=== PATIENT | male | born 1970 | race African-American/Black ===

== ENCOUNTER 2016-06-09 19:49 | Inpatient (IN) | payer MEDICARE, MEDICAID ==
[2016-06-09] MEDS ORDERED: NORMAL SALINE 1000 ML 1,000 ML IV PRN (20:07)
--- NOTE | 2016-06-09 20:09 | ER Document Report ---
ED Medical Screen (RME) - General Stated Complaint: RIGHT FOOT PAIN Notes: Right foot swelling and draining I greeted and performed a rapid initial assessment of this patient. Comprehensive ED assessment and evaluation of the patient, analysis of test results and completion of the medical decision making process will be conducted by additional ED providers. TRAVEL OUTSIDE OF THE [place] IN LAST 30 DAYS: No - Related Data Allergies/Adverse Reactions: No Known Allergies Allergy (Verified 03/25/16 12:31) Past Medical History - Past Medical History Cardiac Medical History: Reports: Hx Hypercholesterolemia, Hx Hypertension Pulmonary Medical History: Reports: Hx Asthma Endocrine Medical History: Reports: Hx Diabetes Mellitus Type 1, Hx Diabetes Mellitus Type 2 GI Medical History: Reports: Hx Gastroesophageal Reflux Disease Psychiatric Medical History: Denies: Hx Depression Infectious Medical History: Reports: Hx HIV Past Surgical History: Reports: Hx Orthopedic Surgery - large toe amputation - Immunizations Hx Diphtheria, Pertussis, Tetanus Vaccination: Yes
--- NOTE | 2016-06-09 21:01 | ER Document Report ---
ED Extremity Problem, Lower - General Chief Complaint: Foot Pain Stated Complaint: RIGHT FOOT PAIN Notes: The patient is a 45-year-old male, past medical history diabetes, prior toe amputations, chronic foot ulcers, neuropathy, presents with a small amount of bleeding and discharge out of a right 3rd toe wound. The bleeding has now stopped. He does not remember if he injured it. He follows with the outpatient wound care center for other foot ulcers, but this ulcer is new. Denies discharge, fevers, redness or streaking, difficulty walking or increased numbness. TRAVEL OUTSIDE OF THE [place] IN LAST 30 DAYS: No - Related Data Allergies/Adverse Reactions: No Known Allergies Allergy (Verified 03/25/16 12:31) Past Medical History - General Information source: Relative - Son - Social History Smoking Status: Unknown if Ever Smoked Family History: Reviewed & Not Pertinent Patient has suicidal ideation: No Patient has homicidal ideation: No - Past Medical History Cardiac Medical History: Reports: Hx Hypercholesterolemia, Hx Hypertension Pulmonary Medical History: Reports: Hx Asthma Endocrine Medical History: Reports: Hx Diabetes Mellitus Type 1, Hx Diabetes Mellitus Type 2 Renal/ Medical History: Denies: Hx Peritoneal Dialysis GI Medical History: Reports: Hx Gastroesophageal Reflux Disease Psychiatric Medical History: Denies: Hx Depression Infectious Medical History: Reports: Hx HIV Past Surgical History: Reports: Hx Orthopedic Surgery - large toe amputation - Immunizations Hx Diphtheria, Pertussis, Tetanus Vaccination: Yes Review of Systems - Review of Systems Notes: REVIEW OF SYSTEMS: CONSTITUTIONAL: -fevers, -chills EENT: -eye pain, -difficulty swallowing, -nasal congestion CARDIOVASCULAR:-chest pain, -syncope. RESPIRATORY: -cough, -SOB GASTROINTESTINAL: -abdominal pain, -nausea, -vomiting, -diarrhea GENITOURINARY: -dysuria, -hematuria MUSCULOSKELETAL: -right foot pain, -back pain, -neck pain SKIN: +right foot ulcer HEMATOLOGIC: -easy bruising or bleeding. LYMPHATIC: -swollen, enlarged glands. NEUROLOGICAL: -altered mental status or loss of consciousness, -headache, - neurologic symptoms PSYCHIATRIC: -anxiety, -depression. ALL OTHER SYSTEMS REVIEWED AND NEGATIVE. Physical Exam - Vital signs Vitals: Temp Pulse Resp BP Pulse Ox 99.9 F 100 16 141/78 H 100 06/09/16 20:02 06/09/16 20:02 06/09/16 20:02 06/09/16 20:02 06/09/16 20:02 Temp 99.9, HR 100, BP 141/78, Resp 16, Pulse Ox 100% - Notes Notes: PHYSICAL EXAMINATION: GENERAL: Well-appearing, well-nourished and in no acute distress. HEAD: Atraumatic, normocephalic. EYES: Pupils equal round and reactive to light, extraocular movements intact, sclera anicteric, conjunctiva are normal. ENT: nares patent, oropharynx clear without exudates. Moist mucous membranes. NECK: Normal range of motion, supple without lymphadenopathy LUNGS: Breath sounds clear to auscultation bilaterally and equal. No wheezes rales or rhonchi. HEART: Regular rate and rhythm without murmurs ABDOMEN: Soft, nontender, normoactive bowel sounds. No guarding, no rebound. No masses appreciated. EXTREMITIES: Right foot with amputation of 1st and 5th toes. Red ulcer over right 3rd toe, no drainage. NEUROLOGICAL: Cranial nerves grossly intact. Normal speech, normal gait. Normal sensory, motor, and reflex exams. PSYCH: Normal mood, normal affect. SKIN: Erythematous ulcer over the dorsal surface of third right toe. No bleeding and no drainage. Course - Re-evaluation Re-evalutation: Patient's wound is not actively bleeding. Foot x-ray shows evidence of osteomyelitis. Will begin Vancomycin and admit for IV Abx and Surgery consult. Spoke to Dr. Mercedes and recommends Medicine Admission and Surgery consult. 06/09/16 23:[address] Springer and he has accepted patient as Inpatient for IV antibiotics and further evaluation of his osteomyelitis. Son and patient comfortable with plan. - Vital Signs Vital signs: Temp Pulse Resp BP Pulse Ox 99.7 F 96 16 133/77 H 100 06/09/16 22:08 06/09/16 22:08 06/09/16 22:08 06/09/16 22:08 06/09/16 22:08 - Laboratory Result Diagrams: 06/09/16 22:45 06/09/16 22:45 Laboratory results interpreted by me: 06/09/16 22:45 RBC 4.18 L Hgb 8.5 L Hct 28.7 L MCV 69 L MCH 20.3 L MCHC 29.6 L RDW 15.3 H - Diagnostic Test Radiology reviewed: Image reviewed, Reports reviewed Radiology results interpreted by me: Foot x-ray: concern for osteomyelitis Discharge - Discharge Clinical Impression: Foot ulcer, right Qualifiers: Non-pressure ulcer stage: limited to breakdown of skin Qualified Code(s): L97.511 - Non-pressure chronic ulcer of other part of right foot limited to breakdown of skin Osteomyelitis Qualifiers: Osteomyelitis location: foot Laterality: right Chronicity: unspecified Qualified Code(s): M86.9 - Osteomyelitis, unspecified Condition: Stable Disposition: ADMITTED INPATIENT Admitting Provider: Donal[facility] Unit Admitted: Medical Floor Referrals: VERONIKA ALMANZA MD [Primary Care Provider] - Follow up as needed
[2016-06-09] MEDS ORDERED: BACITRACIN ZINC OINTMENT 15 GM TP ONE (21:19)
[2016-06-09] MEDS ORDERED: VANCOMYCIN HCL INJ 1000 MG VIAL IV ONE (22:12)
[2016-06-09 23:11] LABS: ABSOLUTE LYMPHOCYTES (AUTO) 1.5 10^3/uL (0.5-4.7); ABSOLUTE MONOCYTES (AUTO) 0.9 10^3/uL (0.1-1.4); ABSOLUTE NEUT (AUTO) 7.3 10^3/uL (1.7-8.2); BASOPHILS % (AUTO) 0.2 % (0-2); EOSINOPHILS % (AUTO) 0.4 % (0-6); HEMATOCRIT 28.7 % (37.9-51.0); HEMOGLOBIN 8.5 g/dL (13.5-17.0); HGB HCT DIFFERENCE -3.2; LYMPHOCYTES % (AUTO) 15.6 % (13-45); MEAN CORPUSCULAR HEMOGLOBIN 20.3 pg (27.0-33.4); MEAN CORPUSCULAR HGB CONC 29.6 g/dL (32.0-36.0); MEAN CORPUSCULAR VOLUME 69 fl (80-97); MONOCYTES % (AUTO) 9.2 % (3-13); RED BLOOD COUNT 4.18 10^6/uL (4.35-5.55); RED CELL DISTRIBUTION WIDTH 15.3 % (11.5-14.0); SEGMENTED NEUTROPHILS % (AUTO) 74.6 % (42-78); WHITE BLOOD COUNT 9.7 10^3/uL (4.0-10.5)
[2016-06-09 23:28] LABS: ALANINE AMINOTRANSFERASE 15 U/L (21-72); ALBUMIN 3.1 g/dL (3.5-5.0); ALKALINE PHOSPHATASE 112 U/L (38-126); ANION GAP 12 (5-19); ASPARTATE AMINO TRANSFERASE 14 U/L (17-59); BILIRUBIN,TOTAL 0.6 mg/dL (0.2-1.3); BLOOD UREA NITROGEN 12 mg/dL (7-20); CALCIUM 8.6 mg/dL (8.4-10.2); CARBON DIOXIDE 27 mmol/L (22-30); CHLORIDE 93 mmol/L (98-107); CREATININE RESULT 1.12 mg/dL (0.52-1.25); POTASSIUM 4.4 mmol/L (3.6-5.0)
[2016-06-09] MEDS ORDERED: KETOROLAC TROMETHAMINE INJ/PF 30 MG/1 ML SDV IV ONE (23:52)
[2016-06-10 00:02] LABS: C-REACTIVE PROTEIN 185.5 mg/L (<10.0)
[2016-06-10 00:05] LABS: GLUCOSE 592 mg/dL (75-110)
[2016-06-10 00:33] LABS: ERYTHROCYTE SEDIMENTATION RATE 120 mm/hr (0-15)
[2016-06-10] MEDS ORDERED: DEXTROSE 50%-WATER SYRINGE 12.5 GM/25 ML DOSE IV PRN (01:44)
[2016-06-10] MEDS ORDERED: DEXTROSE 50%-WATER SYRINGE 25 GM/50 ML DOSE IV PRN (01:44)
[2016-06-10] MEDS ORDERED: DEXTROSE 40% GEL 15 GM TUBE PO PRN (01:44)
[2016-06-10] MEDS ORDERED: GLUCAGON,HUMAN RECOMB 1 MG INJ IM PRN (01:44)
[2016-06-10] MEDS ORDERED: DEXTROSE 40% GEL 15 GM TUBE X 2 PO PRN (01:44)
[2016-06-10] MEDS ORDERED: INSULIN LISPRO 100 UNIT/ML 3 ML VIAL SUBCUT ONE ×3 (01:45→08:00)
[2016-06-10] MEDS ORDERED: INFLUENZA ADLT QUAD (36MOS+) 2016-17 VAC 0.5 ML SYR IM PRN (05:03)
[2016-06-10] MEDS: NORMAL SALINE 1000 ML 1,000 ML IV PRN ×2 (05:11→16:48)
[2016-06-10] MEDS ORDERED: HYDROCODONE/ACETAMINOPHEN 5-325 MG TABLET PO PRN (05:50)
[2016-06-10] MEDS: VANCOMYCIN HCL 1,500 MG in DEXTROSE 5%-WATER 250 ML IV SCH ×2 (10:49→17:08)
[2016-06-10] MEDS: INSULIN LISPRO 100 UNIT/ML 3 ML VIAL SUBCUT PRN ×3 (12:53→22:13)
[2016-06-10] MEDS ORDERED: [UNRECOGNIZED DRUG - OTHER] PO SCH (18:00)
[2016-06-10] MEDS ORDERED: RITONAVIR 100 MG TABLET PO SCH (18:00)
[2016-06-10] MEDS ORDERED: BENAZEPRIL PO SCH (18:00)
[2016-06-10] MEDS ORDERED: HYDROCHLOROTHIAZIDE PO SCH (18:00)
[2016-06-10] MEDS ORDERED: (PENDING PHARMACY ID) (Pravastatin Sodium [Pravachol] 40 MG) PO SCH (18:00)
[2016-06-10] MEDS ORDERED: ASPIRIN 81 MG TABLET, CHEWABLE PO SCH (18:00)
[2016-06-10] MEDS ORDERED: (PENDING PHARMACY ID) (Atazanavir Sulfate [Reyataz 300 Mg Capsule] 300 MG) PO SCH (18:00)
[2016-06-10] MEDS ORDERED: ATENOLOL 50 MG TABLET PO ONE (19:15)
[2016-06-10 19:27] LABS: CREATINE KINASE MB 0.64 ng/mL (<4.55)
[2016-06-10] MEDS ORDERED: ASPIRIN 81 MG TABLET, ENT COATED PO ONE (19:30)
[2016-06-10] MEDS ORDERED: CLOPIDOGREL BISULFATE 75 MG TABLET PO ONE (19:30)
[2016-06-10 19:31] LABS: TROPONIN I < 0.012 ng/mL
[2016-06-10] MEDS: PIPERACILLIN SODIUM/TAZOBACTAM 3.375 GM in NORMAL SALINE 100 ML IV SCH (19:33)
[2016-06-10] MEDS ORDERED: BENAZEPRIL HCL 20 MG TABLET PO ONE (20:00)
[2016-06-10] MEDS ORDERED: ENOXAPARIN SODIUM INJ 40 MG/0.4 ML DISP.SYRIN SUBCUT ONE (20:00)
[2016-06-10 20:22] LABS: PHOSPHORUS 3.7 mg/dL (2.5-4.5)
[2016-06-10] MEDS ORDERED: DIVALPROEX SODIUM 500 MG TAB.SR.24H PO SCH (22:00)
[2016-06-10] MEDS: INSULIN GLARGINE,HUM.REC.ANLOG 1,000 UNIT/10 ML UNIT SUBCUT SCH (22:13)
[2016-06-10] MEDS: ATORVASTATIN CALCIUM 10 MG TABLET PO SCH (22:13)
[2016-06-11] MEDS: PIPERACILLIN SODIUM/TAZOBACTAM 3.375 GM in NORMAL SALINE 100 ML IV SCH ×4 (00:22→18:22)
[2016-06-11 01:33] LABS: CREATINE KINASE MB 0.41 ng/mL (<4.55)
[2016-06-11 01:37] LABS: TROPONIN I < 0.012 ng/mL
[2016-06-11] MEDS: VANCOMYCIN HCL 1,500 MG in DEXTROSE 5%-WATER 250 ML IV SCH ×2 (01:59→11:38)
[2016-06-11 02:56] LABS: URINE BARBITURATES SCREEN NEGATIVE; URINE METHADONE SCREEN NEGATIVE; URINE PHENCYCLIDINE SCREEN NEGATIVE
[2016-06-11] MEDS ORDERED: CLOPIDOGREL BISULFATE 75 MG TABLET PO SCH (10:00)
[2016-06-11 10:34] LABS: HEMATOCRIT 27.1 % (37.9-51.0); HEMOGLOBIN 8.5 g/dL (13.5-17.0); HGB HCT DIFFERENCE -1.6; MEAN CORPUSCULAR HEMOGLOBIN 20.7 pg (27.0-33.4); MEAN CORPUSCULAR HGB CONC 31.3 g/dL (32.0-36.0); MEAN CORPUSCULAR VOLUME 66 fl (80-97); RED BLOOD COUNT 4.09 10^6/uL (4.35-5.55); RED CELL DISTRIBUTION WIDTH 14.7 % (11.5-14.0); WHITE BLOOD COUNT 8.2 10^3/uL (4.0-10.5)
[2016-06-11 11:00] LABS: ALANINE AMINOTRANSFERASE < 6 U/L (21-72); ALBUMIN 2.5 g/dL (3.5-5.0); ALKALINE PHOSPHATASE 82 U/L (38-126); ANION GAP 10 (5-19); ASPARTATE AMINO TRANSFERASE 15 U/L (17-59); BILIRUBIN,TOTAL 0.3 mg/dL (0.2-1.3); BLOOD UREA NITROGEN 15 mg/dL (7-20); CALCIUM 8.8 mg/dL (8.4-10.2); CARBON DIOXIDE 26 mmol/L (22-30); CHLORIDE 103 mmol/L (98-107); CREATINE KINASE 85 U/L (55-170); GLUCOSE 151 mg/dL (75-110); POTASSIUM 3.7 mmol/L (3.6-5.0); SODIUM 139.1 mmol/L (137-145); TOTAL PROTEIN 7.4 g/dL (6.3-8.2)
[2016-06-11 11:01] LABS: CREATINE KINASE MB 0.36 ng/mL (<4.55)
[2016-06-11 11:07] LABS: TROPONIN I < 0.012 ng/mL
[2016-06-11 11:35] LABS: BASOPHILS % (MANUAL) 0 % (0-2); EOSINOPHILS % (MANUAL) 1 % (0-6); LYMPHOCYTES % (MANUAL) 18 % (13-45); TOTAL CELLS COUNTED 100
[2016-06-11] MEDS: ENOXAPARIN SODIUM INJ 40 MG/0.4 ML DISP.SYRIN SUBCUT SCH (11:36)
[2016-06-11] MEDS: ASPIRIN 81 MG TABLET, ENT COATED PO SCH (11:37)
[2016-06-11 11:40] LABS: ANISOCYTOSIS SLIGHT; MICROCYTOSIS 2+; PLATELET CLUMPS PRESENT; ROULEAUX SLIGHT; TOXIC GRANULATION SLIGHT; TOXIC VACUOLATION PRESENT
[2016-06-11] MEDS: ATENOLOL 50 MG TABLET PO SCH (12:12)
[2016-06-11] MEDS: BENAZEPRIL HCL 20 MG TABLET PO SCH (12:13)
[2016-06-11] MEDS: HYDROCHLOROTHIAZIDE 12.5 MG CAPSULE PO SCH (12:15)
[2016-06-11] MEDS: NORMAL SALINE 1000 ML 1,000 ML IV PRN (19:03)
--- NOTE | 2016-06-11 19:34 | PDOC H&P ---
History of Present Illness Admission Date/PCP: 06/10/16 05:38 VERONIKA ALMANZA, History of Present Illness: CAMILA MORENO is a 45 year old male with history of diabetes mellitus, HIV infection, CVA, extremely noncompliant with his care, he can emergency room because of right foot pain, he was evaluated. X-ray was done that suggest osteomyelitis of the right foot. He follows with outpatient wound care center for the management of the foot ulcer Past Medical History Cardiac Medical History: Reports: Hyperlipidema, Hypertension Pulmonary Medical History: Reports: Asthma Neurological Medical History: Reports: Ischemic CVA Endocrine Medical History: Reports: Diabetes Mellitus Type 2 GI Medical History: Reports: Gastroesophageal Reflux Disease Infectious Medical History: Reports: HIV Past Surgical History Past Surgical History: Reports: Orthopedic Surgery - large toe amputation Social History Information Source: Patient Smoking Status: Never Smoker Frequency of Alcohol Use: None Hx Recreational Drug Use: No Drugs: None Hx Prescription Drug Abuse: No - Advance Directive Resuscitation Status: Full Code Family History Family History: Reviewed & Not Pertinent Parental Family History Reviewed: Yes Children Family History Reviewed: Yes Sibling(s) Family History Reviewed.: Yes Medication/Allergy Home Medications: Aspirin [Aspirin EC] 81 mg PO DAILY 06/10/16 Atazanavir Sulfate [Reyataz] 300 mg PO QHS 06/10/16 Atenolol [Tenormin 50 mg Tablet] 50 mg PO DAILY 06/10/16 Benazepril/Hydrochlorothiazide [Lotensin Hct 20-12.5 mg Tablet] 1 tab PO DAILY 06/10/16 Clopidogrel Bisulfate [Plavix 75 mg Tablet] 75 mg PO DAILY 06/10/16 Emtricitabine/Tenofov Alafenam [Descovy 200-25 mg Tablet] 1 tab PO QHS 06/10/16 Famotidine [Pepcid 20 mg Tablet] 20 mg PO DAILY 06/10/16 Insulin Glargine,Hum.rec.anlog [Lantus Insulin Inj 300 Unit/3 ml Pen] 70 unit SUBCUT QHS 06/10/16 Isosorbide Mononitrate [Imdur 30 mg Tablet.er] 30 mg PO DAILY 06/10/16 Pravastatin Sodium [Pravachol] 40 mg PO QHS 06/10/16 Ritonavir [Norvir 100 mg Tablet] 100 mg PO QHS 06/10/16 Sertraline HCl [Zoloft 50 mg Tablet] 50 mg PO QHS 06/10/16 Allergies/Adverse Reactions: No Known Allergies Allergy (Verified 03/25/16 12:31) Review of Systems Constitutional: ABSENT: chills, fever(s), headache(s), weight gain, weight loss Eyes: ABSENT: visual disturbances Ears: ABSENT: hearing changes Cardiovascular: ABSENT: chest pain, dyspnea on exertion, edema, orthropnea, palpitations Respiratory: ABSENT: cough, hemoptysis Gastrointestinal: ABSENT: abdominal pain, constipation, diarrhea, hematemesis, hematochezia, nausea, vomiting Genitourinary: ABSENT: dysuria, hematuria Musculoskeletal: ABSENT: joint swelling Integumentary: ABSENT: rash, wounds Neurological: ABSENT: abnormal gait, abnormal speech, confusion, dizziness, focal weakness, syncope Psychiatric: ABSENT: anxiety, depression, homidical ideation, suicidal ideation Endocrine: ABSENT: cold intolerance, heat intolerance, menstrual abnormalities, polydipsia, polyuria Hematologic/Lymphatic: ABSENT: easy bleeding, easy bruising, lymphadenopathy Physical Exam Vital Signs: Temp Pulse Resp BP Pulse Ox 99.0 F 64 16 99/59 L 100 06/11/16 16:47 06/11/16 16:47 06/11/16 16:47 06/11/16 16:47 06/11/16 16:47 Intake & Output 06/10/16 06/11/16 06/12/16 06:59 06:59 06:59 Intake Total 1550 2113 1626 Balance 1550 2113 1626 Weight 126.8 kg General appearance: PRESENT: no acute distress Head exam: PRESENT: atraumatic, normocephalic Eye exam: PRESENT: PERRLA Neck exam: PRESENT: full ROM Respiratory exam: PRESENT: clear to auscultation adore Vascular exam: PRESENT: normal capillary refill GI/Abdominal exam: PRESENT: soft Rectal exam: PRESENT: deferred Neurological exam: PRESENT: alert Skin exam: PRESENT: other - There is erythematous ulcer on the dorsal surface of the right third toe with drainage suggesting infection of the foot Results Laboratory Results: 06/11/16 10:15 06/11/16 10:15 06/10/16 06/10/16 06/11/16 18:45 18:45 10:15 WBC 8.2 RBC 4.09 L Hgb 8.5 L Hct 27.1 L MCV 66 L MCH 20.7 L MCHC 31.3 L RDW 14.7 H Plt Count 268 Seg Neutrophils % Not Reportable Lymphocytes % Not Reportable Monocytes % Not Reportable Eosinophils % Not Reportable Basophils % Not Reportable Absolute Neutrophils Not Reportable Absolute Lymphocytes Not Reportable Absolute Monocytes Not Reportable Absolute Eosinophils Not Reportable Absolute Basophils Not Reportable Sodium Potassium Chloride Carbon Dioxide Anion Gap BUN Creatinine Est GFR ( Amer) Est GFR (Non-Af Amer) Glucose Calcium Phosphorus 3.7 Magnesium 2.0 Total Bilirubin AST ALT Alkaline Phosphatase Total Protein Albumin TSH 0.37 L 06/11/16 10:15 WBC RBC Hgb Hct MCV MCH MCHC RDW Plt Count Seg Neutrophils % Lymphocytes % Monocytes % Eosinophils % Basophils % Absolute Neutrophils Absolute Lymphocytes Absolute Monocytes Absolute Eosinophils Absolute Basophils Sodium 139.1 Potassium 3.7 Chloride 103 Carbon Dioxide 26 Anion Gap 10 BUN 15 Creatinine 1.50 H Est GFR ( Amer) > 60 Est GFR (Non-Af Amer) 50 L Glucose 151 H Calcium 8.8 Phosphorus Magnesium Total Bilirubin 0.3 AST 15 L ALT < 6 L Alkaline Phosphatase 82 Total Protein 7.4 Albumin 2.5 L TSH 06/10/16 06/10/16 06/11/16 18:45 18:45 00:28 Creatine Kinase 114 88 CK-MB (CK-2) 0.64 Troponin I < 0.012 06/11/16 06/11/16 06/11/16 00:28 10:15 10:15 Creatine Kinase 85 CK-MB (CK-2) 0.41 0.36 Troponin I < 0.012 < 0.012 Impressions: Foot X-Ray 06/09/16 20:08 IMPRESSION: Focal periosteal indistinctness involving the 3rd metatarsal diaphysis in the setting of a soft tissue infection is suggestive of osteomyelitis. Cortical irregularity involving the base of the 3rd digit proximal phalanx is consistent with posttraumatic change of unknown chronicity. Assessment & Plan - Diagnosis (1) Osteomyelitis of foot, right, acute Is this a current diagnosis for this admission?: YesPlan: He be started on IV antibiotic, Zosyn and vancomycin and consultation from surgery be requested (2) CVA (cerebral vascular accident) Qualifiers: CVA mechanism: stenosis Laterality of affected vessel: unspecified Is this a current diagnosis for this admission?: Yes (3) Diabetes mellitus with foot ulcer and gangrene Is this a current diagnosis for this admission?: Yes (4) HIV (human immunodeficiency virus infection) Is this a current diagnosis for this admission?: Yes (5) HTN (hypertension) Qualifiers: Hypertension type: essential hypertension Qualified Code(s): I10 - Essential (primary) hypertension Is this a current diagnosis for this admission?: Yes (6) Non compliance w medication regimen Is this a current diagnosis for this admission?: Yes
[2016-06-11] MEDS: INSULIN GLARGINE,HUM.REC.ANLOG 1,000 UNIT/10 ML UNIT SUBCUT SCH (22:51)
--- NOTE | 2016-06-11 22:51 | PDOC CONSULTATION ---
Consultation Consult Date: 06/11/16 Consult reason:: Diabetic right foot infection History of Present Illness Admission Date/PCP: 06/10/16 05:38 VERONIKA ALMANZA, History of Present Illness: 45-year-old diabetic patient with long-standing forefoot plantar surface ulcer that has been managed at the wound care clinic has been noted with the discoloration and the purulent drainage from his middle third toe uncertain of the duration. Patient is an extremely poor historian. Uncertain whether he has had any fevers or chills. He has had the right great toe and right fifth toe amputations in the past. He has had a left fifth toe amputation in the past. Past Medical History Cardiac Medical History: Reports: Hyperlipidema, Hypertension Pulmonary Medical History: Reports: Asthma Neurological Medical History: Reports: Ischemic CVA Endocrine Medical History: Reports: Diabetes Mellitus Type 1, Diabetes Mellitus Type 2 GI Medical History: Reports: Gastroesophageal Reflux Disease Psychiatric Medical History: Denies: Depression Infectious Medical History: Reports: HIV Past Surgical History Past Surgical History: Reports: Orthopedic Surgery - large toe amputation Social History Smoking Status: Never Smoker Frequency of Alcohol Use: None Hx Recreational Drug Use: No Drugs: None Hx Prescription Drug Abuse: No - Advance Directive Resuscitation Status: Full Code Family History Family History: Reviewed & Not Pertinent Parental Family History Reviewed: No Children Family History Reviewed: No Sibling(s) Family History Reviewed.: No Medication/Allergy Home Medications: Aspirin [Aspirin EC] 81 mg PO DAILY 06/10/16 Atazanavir Sulfate [Reyataz] 300 mg PO QHS 06/10/16 Atenolol [Tenormin 50 mg Tablet] 50 mg PO DAILY 06/10/16 Benazepril/Hydrochlorothiazide [Lotensin Hct 20-12.5 mg Tablet] 1 tab PO DAILY 06/10/16 Clopidogrel Bisulfate [Plavix 75 mg Tablet] 75 mg PO DAILY 06/10/16 Emtricitabine/Tenofov Alafenam [Descovy 200-25 mg Tablet] 1 tab PO QHS 06/10/16 Famotidine [Pepcid 20 mg Tablet] 20 mg PO DAILY 06/10/16 Insulin Glargine,Hum.rec.anlog [Lantus Insulin Inj 300 Unit/3 ml Pen] 70 unit SUBCUT QHS 06/10/16 Isosorbide Mononitrate [Imdur 30 mg Tablet.er] 30 mg PO DAILY 06/10/16 Pravastatin Sodium [Pravachol] 40 mg PO QHS 06/10/16 Ritonavir [Norvir 100 mg Tablet] 100 mg PO QHS 06/10/16 Sertraline HCl [Zoloft 50 mg Tablet] 50 mg PO QHS 06/10/16 Allergies/Adverse Reactions: No Known Allergies Allergy (Verified 03/25/16 12:31) Physical Exam Vital Signs: Temp Pulse Resp BP Pulse Ox 99.0 F 64 16 99/59 L 100 06/11/16 16:47 06/11/16 16:47 06/11/16 16:47 06/11/16 16:47 06/11/16 16:47 Intake & Output 06/10/16 06/11/16 06/12/16 06:59 06:59 06:59 Intake Total 1550 2113 1626 Balance 1550 2113 1626 Weight 126.8 kg General appearance: PRESENT: no acute distress Head exam: PRESENT: atraumatic Neck exam: PRESENT: other - Supple with no abnormal masses. Respiratory exam: PRESENT: clear to auscultation adore Cardiovascular exam: PRESENT: RRR GI/Abdominal exam: PRESENT: other - Soft nondistended nontender to palpation. Extremities exam: PRESENT: other - Left foot with the healed the fifth toe amputation. Right foot with healed the right great toe and fifth toe amputations. Right leg area with diffuse the swelling with skin thickening consistent with chronic venous insufficiency. Right third toe with the blistering and partial thickness skin loss with weeping pus. Right plantar forefoot with approximately 3 x 6 cm clean base ulceration. Due to diffuse swelling unable to palpate any pedal pulses but the foot is warm. Neurological exam: PRESENT: other - Right arm and right leg weakness right arm more profound. Right leg with 4+ strength. Right arm with limited range of motion favors flexion Results Laboratory Results: 06/11/16 10:15 06/11/16 10:15 06/11/16 06/11/16 10:15 10:15 WBC 8.2 RBC 4.09 L Hgb 8.5 L Hct 27.1 L MCV 66 L MCH 20.7 L MCHC 31.3 L RDW 14.7 H Plt Count 268 Seg Neutrophils % Not Reportable Lymphocytes % Not Reportable Monocytes % Not Reportable Eosinophils % Not Reportable Basophils % Not Reportable Absolute Neutrophils Not Reportable Absolute Lymphocytes Not Reportable Absolute Monocytes Not Reportable Absolute Eosinophils Not Reportable Absolute Basophils Not Reportable Sodium 139.1 Potassium 3.7 Chloride 103 Carbon Dioxide 26 Anion Gap 10 BUN 15 Creatinine 1.50 H Est GFR ( Amer) > 60 Est GFR (Non-Af Amer) 50 L Glucose 151 H Calcium 8.8 Total Bilirubin 0.3 AST 15 L ALT < 6 L Alkaline Phosphatase 82 Total Protein 7.4 Albumin 2.5 L 06/10/16 06/10/16 06/11/16 18:45 18:45 00:28 Creatine Kinase 114 88 CK-MB (CK-2) 0.64 Troponin I < 0.012 06/11/16 06/11/16 06/11/16 00:28 10:15 10:15 Creatine Kinase 85 CK-MB (CK-2) 0.41 0.36 Troponin I < 0.012 < 0.012 Impressions: Foot X-Ray 06/09/16 20:08 IMPRESSION: Focal periosteal indistinctness involving the 3rd metatarsal diaphysis in the setting of a soft tissue infection is suggestive of osteomyelitis. Cortical irregularity involving the base of the 3rd digit proximal phalanx is consistent with posttraumatic change of unknown chronicity. Assessment & Plan - Diagnosis (1) Osteomyelitis of foot, right, acute Is this a current diagnosis for this admission?: YesPlan: X-ray evidence of the right third toe osteomyelitis extending to the metatarsal. Exam consistent with this x-ray finding. Patient would highly benefit from a third toe ray amputation. Continue antibiotics. Hold Plavix. We'll plan amputation. I have discussed with the patient the risk and benefits of the procedure including risk of stroke, risk of cardiopulmonary complications , poor wound healing, progression of the infection where it requires a right leg amputation, adjacent the structure injury, bleeding. Patient understands and agrees to proceed. Will discuss with the oncoming surgeon about timing of the procedure. Will make the patient nothing by mouth tonight for possible surgery tomorrow.
[2016-06-11] MEDS ORDERED: DEXTROSE 5%-NORMAL SALINE 1,000 ML IV PRN (23:05)
[2016-06-11] MEDS: ATORVASTATIN CALCIUM 10 MG TABLET PO SCH (23:33)
[2016-06-12] MEDS: PIPERACILLIN SODIUM/TAZOBACTAM 3.375 GM in NORMAL SALINE 100 ML IV SCH ×4 (03:15→17:43)
[2016-06-12] MEDS: VANCOMYCIN HCL 1,250 MG in DEXTROSE 5%-WATER 250 ML IV SCH ×3 (03:15→23:25)
[2016-06-12] MEDS: ENOXAPARIN SODIUM INJ 40 MG/0.4 ML DISP.SYRIN SUBCUT SCH (09:39)
[2016-06-12] MEDS: HYDROCHLOROTHIAZIDE 12.5 MG CAPSULE PO SCH (10:31)
[2016-06-12] MEDS: ASPIRIN 81 MG TABLET, ENT COATED PO SCH (10:31)
[2016-06-12] MEDS: ATENOLOL 50 MG TABLET PO SCH (10:31)
[2016-06-12] MEDS: BENAZEPRIL HCL 20 MG TABLET PO SCH (10:31)
[2016-06-12 10:38] LABS: ABSOLUTE CD 4 HELPER 661 /uL (359-1519); CD BASOPHILS 0 % (.); CD EOSINOPHILS 2 % (.); CD LYMPHS 27 % (.); CD MONOCYTES 9 % (.); CD NEUTROPHILS 62 % (.); HEMOGLOBIN 8.3 g/dL (12.6-17.7); IMMATURE GRANULOCYTES 0 % (.); LYMPHS(ABSOLUTE) 1.8 x10E3/uL (0.7-3.1); MCH 20.8 pg (26.6-33.0); MCHC 29.6 g/dL (31.5-35.7); MCV 70 fL (79-97); NEUTROPHILS(ABSOLUTE) 4.3 x10E3/uL (1.4-7.0); PLATELETS 405 x10E3/uL (150-379); RBC 3.99 x10E6/uL (4.14-5.80); RDW 14.6 % (12.3-15.4); WBC 6.9 x10E3/uL (3.4-10.8)
[2016-06-12] MEDS ORDERED: NORMAL SALINE 10 ML SDV (AFTER EACH USE) IV PRN (11:27)
--- NOTE | 2016-06-12 19:22 | PDOC PROGRESS REPORT ---
Subjective Progress Note for:: 06/11/16 Subjective:: Patient was seen by the surgeon and the plan is for debridement in the morning Physical Exam Vital Signs: Temp Pulse Resp BP Pulse Ox 99.0 F 64 16 99/59 L 100 06/11/16 16:47 06/11/16 16:47 06/11/16 16:47 06/11/16 16:47 06/11/16 16:47 Intake & Output 06/10/16 06/11/16 06/12/16 06:59 06:59 06:59 Intake Total 1550 2113 1626 Balance 1550 2113 1626 Weight 126.8 kg General appearance: PRESENT: no acute distress Eye exam: PRESENT: PERRLA Cardiovascular exam: PRESENT: +S1, +S2 Results Laboratory Results: 06/11/16 10:15 06/11/16 10:15 06/10/16 06/10/16 06/11/16 18:45 18:45 10:15 WBC 8.2 RBC 4.09 L Hgb 8.5 L Hct 27.1 L MCV 66 L MCH 20.7 L MCHC 31.3 L RDW 14.7 H Plt Count 268 Seg Neutrophils % Not Reportable Lymphocytes % Not Reportable Monocytes % Not Reportable Eosinophils % Not Reportable Basophils % Not Reportable Absolute Neutrophils Not Reportable Absolute Lymphocytes Not Reportable Absolute Monocytes Not Reportable Absolute Eosinophils Not Reportable Absolute Basophils Not Reportable Sodium Potassium Chloride Carbon Dioxide Anion Gap BUN Creatinine Est GFR ( Amer) Est GFR (Non-Af Amer) Glucose Calcium Phosphorus 3.7 Magnesium 2.0 Total Bilirubin AST ALT Alkaline Phosphatase Total Protein Albumin TSH 0.37 L 06/11/16 10:15 WBC RBC Hgb Hct MCV MCH MCHC RDW Plt Count Seg Neutrophils % Lymphocytes % Monocytes % Eosinophils % Basophils % Absolute Neutrophils Absolute Lymphocytes Absolute Monocytes Absolute Eosinophils Absolute Basophils Sodium 139.1 Potassium 3.7 Chloride 103 Carbon Dioxide 26 Anion Gap 10 BUN 15 Creatinine 1.50 H Est GFR ( Amer) > 60 Est GFR (Non-Af Amer) 50 L Glucose 151 H Calcium 8.8 Phosphorus Magnesium Total Bilirubin 0.3 AST 15 L ALT < 6 L Alkaline Phosphatase 82 Total Protein 7.4 Albumin 2.5 L TSH 06/10/16 06/10/16 06/11/16 18:45 18:45 00:28 Creatine Kinase 114 88 CK-MB (CK-2) 0.64 Troponin I < 0.012 06/11/16 06/11/16 06/11/16 00:28 10:15 10:15 Creatine Kinase 85 CK-MB (CK-2) 0.41 0.36 Troponin I < 0.012 < 0.012 Impressions: Foot X-Ray 06/09/16 20:08 IMPRESSION: Focal periosteal indistinctness involving the 3rd metatarsal diaphysis in the setting of a soft tissue infection is suggestive of osteomyelitis. Cortical irregularity involving the base of the 3rd digit proximal phalanx is consistent with posttraumatic change of unknown chronicity. Assessment & Plan - Diagnosis (1) Osteomyelitis of foot, right, acute Is this a current diagnosis for this admission?: Yes (2) CVA (cerebral vascular accident) Qualifiers: CVA mechanism: stenosis Laterality of affected vessel: unspecified Is this a current diagnosis for this admission?: Yes (3) Diabetes mellitus with foot ulcer and gangrene Is this a current diagnosis for this admission?: Yes (4) HIV (human immunodeficiency virus infection) Is this a current diagnosis for this admission?: Yes (5) HTN (hypertension) Qualifiers: Hypertension type: essential hypertension Qualified Code(s): I10 - Essential (primary) hypertension Is this a current diagnosis for this admission?: Yes (6) Non compliance w medication regimen Is this a current diagnosis for this admission?: Yes
--- NOTE | 2016-06-12 19:24 | PDOC PROGRESS REPORT ---
Subjective Progress Note for:: 06/12/16 Subjective:: Patient was seen by the bedside, he has polymicrobial infection of the right foot Physical Exam Vital Signs: Temp Pulse Resp BP Pulse Ox 98.4 F 66 16 128/69 H 100 06/12/16 16:49 06/12/16 16:49 06/12/16 16:49 06/12/16 16:49 06/12/16 16:49 Intake & Output 06/11/16 06/12/16 06/13/16 06:59 06:59 06:59 Intake Total 3 2226 1088 Balance 3 2226 1088 Weight 126.8 kg 125.4 kg General appearance: PRESENT: no acute distress Eye exam: PRESENT: PERRLA Respiratory exam: PRESENT: clear to auscultation adore Cardiovascular exam: PRESENT: +S1, +S2 Results Laboratory Results: 06/11/16 10:15 06/11/16 10:15 06/10/16 06/10/16 06/11/16 18:45 18:45 00:28 Creatine Kinase 114 88 CK-MB (CK-2) 0.64 Troponin I < 0.012 06/11/16 06/11/16 06/11/16 00:28 10:15 10:15 Creatine Kinase 85 CK-MB (CK-2) 0.41 0.36 Troponin I < 0.012 < 0.012 Impressions: Foot X-Ray 06/09/16 20:08 IMPRESSION: Focal periosteal indistinctness involving the 3rd metatarsal diaphysis in the setting of a soft tissue infection is suggestive of osteomyelitis. Cortical irregularity involving the base of the 3rd digit proximal phalanx is consistent with posttraumatic change of unknown chronicity. Lower Extremity MRI 06/11/16 00:00 IMPRESSION: Plantar ulcer, foot cellulitis, osteomyelitis as above Guidance Fluoroscopy 06/12/16 00:00 IMPRESSION: SUCCESSFUL PLACEMENT OF A 5 FR DUAL LUMEN 47 CM PICC IN THE LEFT BASILIC VEIN. Interventional Vascular Procedure 06/12/16 00:00 IMPRESSION: SUCCESSFUL PLACEMENT OF A 5 FR DUAL LUMEN 47 CM PICC IN THE LEFT BASILIC VEIN. PICC Line Insertion 06/12/16 04:46 IMPRESSION: SUCCESSFUL PLACEMENT OF A 5 FR DUAL LUMEN 47 CM PICC IN THE LEFT BASILIC VEIN. Assessment & Plan - Diagnosis (1) Osteomyelitis of foot, right, acute Is this a current diagnosis for this admission?: Yes (2) CVA (cerebral vascular accident) Qualifiers: CVA mechanism: stenosis Laterality of affected vessel: unspecified Is this a current diagnosis for this admission?: Yes (3) Diabetes mellitus with foot ulcer and gangrene Is this a current diagnosis for this admission?: Yes (4) HIV (human immunodeficiency virus infection) Is this a current diagnosis for this admission?: Yes (5) HTN (hypertension) Qualifiers: Hypertension type: essential hypertension Qualified Code(s): I10 - Essential (primary) hypertension Is this a current diagnosis for this admission?: Yes (6) Non compliance w medication regimen Is this a current diagnosis for this admission?: Yes
[2016-06-12] MEDS: INSULIN GLARGINE,HUM.REC.ANLOG 1,000 UNIT/10 ML UNIT SUBCUT SCH (23:02)
[2016-06-12] MEDS: ATORVASTATIN CALCIUM 10 MG TABLET PO SCH (23:24)
[2016-06-12] MEDS: NORMAL SALINE 10 ML SDV (SCHEDULED) IV SCH (23:25)
[2016-06-13] MEDS: PIPERACILLIN SODIUM/TAZOBACTAM 3.375 GM in NORMAL SALINE 100 ML IV SCH ×2 (01:09→05:40)
[2016-06-13 06:07] LABS: ABSOLUTE EOSINOPHILS # (AUTO) 0.1 10^3/uL (0.0-0.6); ABSOLUTE LYMPHOCYTES (AUTO) 1.6 10^3/uL (0.5-4.7); ABSOLUTE MONOCYTES (AUTO) 0.6 10^3/uL (0.1-1.4); ABSOLUTE NEUT (AUTO) 4.3 10^3/uL (1.7-8.2); BASOPHILS % (AUTO) 0.2 % (0-2); EOSINOPHILS % (AUTO) 1.6 % (0-6); HEMATOCRIT 24.9 % (37.9-51.0); HGB HCT DIFFERENCE -2.7; LYMPHOCYTES % (AUTO) 24.1 % (13-45); MEAN CORPUSCULAR HGB CONC 29.7 g/dL (32.0-36.0); MEAN CORPUSCULAR VOLUME 67 fl (80-97); MONOCYTES % (AUTO) 9.4 % (3-13); RED CELL DISTRIBUTION WIDTH 14.5 % (11.5-14.0); SEGMENTED NEUTROPHILS % (AUTO) 64.7 % (42-78); WHITE BLOOD COUNT 6.6 10^3/uL (4.0-10.5)
[2016-06-13 06:13] LABS: HEMOGLOBIN 7.4 g/dL (13.5-17.0)
[2016-06-13 06:25] LABS: ALANINE AMINOTRANSFERASE 13 U/L (21-72); ALBUMIN 2.5 g/dL (3.5-5.0); ALKALINE PHOSPHATASE 68 U/L (38-126); ANION GAP 9 (5-19); ASPARTATE AMINO TRANSFERASE 12 U/L (17-59); BILIRUBIN,TOTAL 0.4 mg/dL (0.2-1.3); BLOOD UREA NITROGEN 16 mg/dL (7-20); CALCIUM 8.4 mg/dL (8.4-10.2); CARBON DIOXIDE 26 mmol/L (22-30); CHLORIDE 108 mmol/L (98-107); CREATININE RESULT 3.27 mg/dL (0.52-1.25); GLUCOSE 122 mg/dL (75-110); POTASSIUM 3.5 mmol/L (3.6-5.0); SODIUM 142.9 mmol/L (137-145); TOTAL PROTEIN 6.7 g/dL (6.3-8.2)
[2016-06-13 07:37] LABS: HIV-1 RNA LOG10.. 2.857 (.); HIV-1 RNA PCR QUANT 720 copies/mL (.)
[2016-06-13] MEDS: ENOXAPARIN SODIUM INJ 40 MG/0.4 ML DISP.SYRIN SUBCUT SCH (11:44)
[2016-06-13] MEDS: NORMAL SALINE 10 ML SDV (SCHEDULED) IV SCH ×2 (11:44→22:17)
--- NOTE | 2016-06-13 11:47 | PDOC PROGRESS REPORT ---
Subjective Progress Note for:: 06/12/16 Subjective:: Patient very sleepy. cognitive deficits. No complaints about foot. Physical Exam Vital Signs: Temp Pulse Resp BP Pulse Ox 98.0 F 67 12 146/78 H 98 06/13/16 08:40 06/13/16 08:40 06/13/16 08:40 06/13/16 08:40 06/13/16 08:40 Intake & Output 06/12/16 06/13/16 06/14/16 06:59 06:59 06:59 Intake Total 2226 2968 135 Balance 2226 2968 135 Weight 125.4 kg 125.2 kg General appearance: PRESENT: no acute distress Extremities exam: PRESENT: other - Right foot with remote first and fifth digit amputations. Third digit extremely enlarged with sloughing skin, erythema, drainage. Sinus at the base of the toe is probed. Plantar surface sinuses probed. Neurological exam: PRESENT: motor sensory deficit, other - Limited verbalization. He can relate that he has 2 previous strokes and has right- sided weakness. Psychiatric exam: PRESENT: flat affect Skin exam: PRESENT: other - Skin changes on foot. See above. Results Laboratory Results: 06/13/16 05:30 06/13/16 05:30 06/13/16 06/13/16 06/13/16 05:30 05:30 07:45 WBC 6.6 RBC 3.70 L Hgb 7.4 L Hct 24.9 L MCV 67 L MCH 20.0 L MCHC 29.7 L RDW 14.5 H Plt Count 333 Seg Neutrophils % 64.7 Lymphocytes % 24.1 Monocytes % 9.4 Eosinophils % 1.6 Basophils % 0.2 Absolute Neutrophils 4.3 Absolute Lymphocytes 1.6 Absolute Monocytes 0.6 Absolute Eosinophils 0.1 Absolute Basophils 0.0 Sodium 142.9 Potassium 3.5 L Chloride 108 H Carbon Dioxide 26 Anion Gap 9 BUN 16 Creatinine 3.27 H Est GFR ( Amer) 25 L Est GFR (Non-Af Amer) 20 L Glucose 122 H Calcium 8.4 Total Bilirubin 0.4 AST 12 L ALT 13 L Alkaline Phosphatase 68 Total Protein 6.7 Albumin 2.5 L Blood Type O POSITIVE Antibody Screen NEGATIVE 06/11/16 02:13 Clean Catch Midstream Urine Culture - Final NO GROWTH 2 DAYS 06/10/16 06/10/16 06/11/16 18:45 18:45 00:28 Creatine Kinase 114 88 CK-MB (CK-2) 0.64 Troponin I < 0.012 06/11/16 06/11/16 06/11/16 00:28 10:15 10:15 Creatine Kinase 85 CK-MB (CK-2) 0.41 0.36 Troponin I < 0.012 < 0.012 Impressions: Foot X-Ray 06/09/16 20:08 IMPRESSION: Focal periosteal indistinctness involving the 3rd metatarsal diaphysis in the setting of a soft tissue infection is suggestive of osteomyelitis. Cortical irregularity involving the base of the 3rd digit proximal phalanx is consistent with posttraumatic change of unknown chronicity. Lower Extremity MRI 06/11/16 00:00 IMPRESSION: Plantar ulcer, foot cellulitis, osteomyelitis as above Guidance Fluoroscopy 06/12/16 00:00 IMPRESSION: SUCCESSFUL PLACEMENT OF A 5 FR DUAL LUMEN 47 CM PICC IN THE LEFT BASILIC VEIN. Interventional Vascular Procedure 06/12/16 00:00 IMPRESSION: SUCCESSFUL PLACEMENT OF A 5 FR DUAL LUMEN 47 CM PICC IN THE LEFT BASILIC VEIN. PICC Line Insertion 06/12/16 04:46 IMPRESSION: SUCCESSFUL PLACEMENT OF A 5 FR DUAL LUMEN 47 CM PICC IN THE LEFT BASILIC VEIN. Assessment & Plan - Diagnosis (1) Foot ulcer, right Qualifiers: Non-pressure ulcer stage: limited to breakdown of skin Qualified Code(s ): L97.511 - Non-pressure chronic ulcer of other part of right foot limited to breakdown of skin Is this a current diagnosis for this admission?: YesPlan: Last dose of Plavix was in the morning of 06/11/2016. We'll need to be off Plavix for another 2-3 days prior to surgery. He will [place] need at least a TMA. (2) Osteomyelitis Qualifiers: Osteomyelitis location: foot Laterality: right Chronicity: unspecified Qualified Code(s): M86.9 - Osteomyelitis, unspecified (3) Diabetes mellitus with foot ulcer and gangrene Is this a current diagnosis for this admission?: Yes
[2016-06-13] MEDS: BENAZEPRIL HCL 20 MG TABLET PO SCH (12:30)
[2016-06-13] MEDS: HYDROCHLOROTHIAZIDE 12.5 MG CAPSULE PO SCH (12:30)
[2016-06-13] MEDS: ATENOLOL 50 MG TABLET PO SCH (12:30)
[2016-06-13] MEDS: ASPIRIN 81 MG TABLET, ENT COATED PO SCH (12:30)
[2016-06-13] MEDS ORDERED: CEFAZOLIN SODIUM 1 GM in DEXTROSE 5%-WATER 50 ML IV ONE (15:00)
--- NOTE | 2016-06-13 21:37 | PDOC PROGRESS REPORT ---
Subjective Progress Note for:: 06/13/16 Subjective:: There is no new complaint today, patient seen by the bedside Physical Exam Vital Signs: Temp Pulse Resp BP Pulse Ox 97.9 F 69 17 134/85 H 100 06/13/16 19:05 06/13/16 19:05 06/13/16 19:05 06/13/16 19:05 06/13/16 19:05 Intake & Output 06/12/16 06/13/16 06/14/16 06:59 06:59 06:59 Intake Total 2226 2968 735 Balance 2226 2968 735 Weight 125.4 kg 125.2 kg General appearance: PRESENT: no acute distress Eye exam: PRESENT: PERRLA Respiratory exam: PRESENT: clear to auscultation adore Cardiovascular exam: PRESENT: +S1, +S2 GI/Abdominal exam: PRESENT: soft Neurological exam: PRESENT: alert Results Laboratory Results: 06/13/16 05:30 06/13/16 05:30 06/13/16 06/13/16 06/13/16 05:30 05:30 07:45 WBC 6.6 RBC 3.70 L Hgb 7.4 L Hct 24.9 L MCV 67 L MCH 20.0 L MCHC 29.7 L RDW 14.5 H Plt Count 333 Seg Neutrophils % 64.7 Lymphocytes % 24.1 Monocytes % 9.4 Eosinophils % 1.6 Basophils % 0.2 Absolute Neutrophils 4.3 Absolute Lymphocytes 1.6 Absolute Monocytes 0.6 Absolute Eosinophils 0.1 Absolute Basophils 0.0 Sodium 142.9 Potassium 3.5 L Chloride 108 H Carbon Dioxide 26 Anion Gap 9 BUN 16 Creatinine 3.27 H Est GFR ( Amer) 25 L Est GFR (Non-Af Amer) 20 L Glucose 122 H Calcium 8.4 Total Bilirubin 0.4 AST 12 L ALT 13 L Alkaline Phosphatase 68 Total Protein 6.7 Albumin 2.5 L Blood Type O POSITIVE Antibody Screen NEGATIVE 06/11/16 02:13 Clean Catch Midstream Urine Culture - Final NO GROWTH 2 DAYS 06/10/16 06/10/16 06/11/16 18:45 18:45 00:28 Creatine Kinase 114 88 CK-MB (CK-2) 0.64 Troponin I < 0.012 06/11/16 06/11/16 06/11/16 00:28 10:15 10:15 Creatine Kinase 85 CK-MB (CK-2) 0.41 0.36 Troponin I < 0.012 < 0.012 Impressions: Foot X-Ray 06/09/16 20:08 IMPRESSION: Focal periosteal indistinctness involving the 3rd metatarsal diaphysis in the setting of a soft tissue infection is suggestive of osteomyelitis. Cortical irregularity involving the base of the 3rd digit proximal phalanx is consistent with posttraumatic change of unknown chronicity. Lower Extremity MRI 06/11/16 00:00 IMPRESSION: Plantar ulcer, foot cellulitis, osteomyelitis as above Guidance Fluoroscopy 06/12/16 00:00 IMPRESSION: SUCCESSFUL PLACEMENT OF A 5 FR DUAL LUMEN 47 CM PICC IN THE LEFT BASILIC VEIN. Interventional Vascular Procedure 06/12/16 00:00 IMPRESSION: SUCCESSFUL PLACEMENT OF A 5 FR DUAL LUMEN 47 CM PICC IN THE LEFT BASILIC VEIN. PICC Line Insertion 06/12/16 04:46 IMPRESSION: SUCCESSFUL PLACEMENT OF A 5 FR DUAL LUMEN 47 CM PICC IN THE LEFT BASILIC VEIN. Assessment & Plan - Diagnosis (1) Osteomyelitis of foot, right, acute Is this a current diagnosis for this admission?: Yes (2) CVA (cerebral vascular accident) Qualifiers: CVA mechanism: stenosis Laterality of affected vessel: unspecified Is this a current diagnosis for this admission?: Yes (3) Diabetes mellitus with foot ulcer and gangrene Is this a current diagnosis for this admission?: Yes (4) HIV (human immunodeficiency virus infection) Is this a current diagnosis for this admission?: Yes (5) HTN (hypertension) Qualifiers: Hypertension type: essential hypertension Qualified Code(s): I10 - Essential (primary) hypertension Is this a current diagnosis for this admission?: Yes (6) Non compliance w medication regimen Is this a current diagnosis for this admission?: Yes
[2016-06-13] MEDS: INSULIN GLARGINE,HUM.REC.ANLOG 1,000 UNIT/10 ML UNIT SUBCUT SCH (22:09)
[2016-06-13] MEDS: ATORVASTATIN CALCIUM 10 MG TABLET PO SCH (22:09)
[2016-06-13] MEDS: CEFAZOLIN SODIUM 1 GM in DEXTROSE 5%-WATER 50 ML IV SCH (22:15)
[2016-06-13] MEDS ORDERED: ONDANSETRON HCL INJ/PF 4 MG/2 ML SDV IV PRN (23:23)
[2016-06-14] MEDS: DEXTROSE 5%-NORMAL SALINE 1,000 ML IV PRN ×2 (01:35→22:46)
[2016-06-14 05:11] LABS: ABSOLUTE EOSINOPHILS # (AUTO) 0.1 10^3/uL (0.0-0.6); ABSOLUTE LYMPHOCYTES (AUTO) 1.3 10^3/uL (0.5-4.7); ABSOLUTE MONOCYTES (AUTO) 0.7 10^3/uL (0.1-1.4); ABSOLUTE NEUT (AUTO) 5.6 10^3/uL (1.7-8.2); BASOPHILS % (AUTO) 0.4 % (0-2); EOSINOPHILS % (AUTO) 1.3 % (0-6); HEMATOCRIT 31.2 % (37.9-51.0); HGB HCT DIFFERENCE -2.1; LYMPHOCYTES % (AUTO) 16.9 % (13-45); MEAN CORPUSCULAR HEMOGLOBIN 21.7 pg (27.0-33.4); MEAN CORPUSCULAR HGB CONC 30.9 g/dL (32.0-36.0); MONOCYTES % (AUTO) 8.9 % (3-13); RED BLOOD COUNT 4.45 10^6/uL (4.35-5.55); RED CELL DISTRIBUTION WIDTH 19.1 % (11.5-14.0); SEGMENTED NEUTROPHILS % (AUTO) 72.5 % (42-78); WHITE BLOOD COUNT 7.7 10^3/uL (4.0-10.5)
[2016-06-14 05:13] LABS: HEMOGLOBIN 9.7 g/dL (13.5-17.0); MEAN CORPUSCULAR VOLUME 70 fl (80-97)
--- NOTE | 2016-06-14 09:41 | PDOC PROGRESS REPORT ---
Subjective Subjective:: Patient was refusing treatments last night such as blood sugar checks and heparin flush for his PICC line. He is refusing to talk to me this morning. I tried reaching his son via phone and only got a message notifying the voicemail was full. Physical Exam Vital Signs: Temp Pulse Resp BP Pulse Ox 98 F 70 18 118/88 H 100 06/14/16 07:00 06/14/16 07:00 06/14/16 07:00 06/14/16 07:00 06/14/16 07:00 Intake & Output 06/13/16 06/14/16 06/15/16 06:59 06:59 06:59 Intake Total 2968 1485 Balance 2968 1485 Weight 125.2 kg 125.5 kg General appearance: PRESENT: no acute distress Extremities exam: PRESENT: other - Right third toe still has erythema, induration and edema, but is much better than yesterday. Still has the tract at the third toe base and on the third metatarsal head. Dressings were removed. Wound was redressed. Neurological exam: PRESENT: awake, other - Refusing to speak with me. Results Laboratory Results: 06/14/16 04:47 06/13/16 05:30 06/13/16 06/14/16 07:45 04:47 WBC 7.7 RBC 4.45 Hgb 9.7 L D Hct 31.2 L MCV 70 L MCH 21.7 L MCHC 30.9 L RDW 19.1 H Plt Count 313 Seg Neutrophils % 72.5 Lymphocytes % 16.9 Monocytes % 8.9 Eosinophils % 1.3 Basophils % 0.4 Absolute Neutrophils 5.6 Absolute Lymphocytes 1.3 Absolute Monocytes 0.7 Absolute Eosinophils 0.1 Absolute Basophils 0.0 Blood Type O POSITIVE Antibody Screen NEGATIVE 06/11/16 02:13 Clean Catch Midstream Urine Culture - Final NO GROWTH 2 DAYS 06/10/16 06/10/16 06/11/16 18:45 18:45 00:28 Creatine Kinase 114 88 CK-MB (CK-2) 0.64 Troponin I < 0.012 06/11/16 06/11/16 06/11/16 00:28 10:15 10:15 Creatine Kinase 85 CK-MB (CK-2) 0.41 0.36 Troponin I < 0.012 < 0.012 Impressions: Foot X-Ray 06/09/16 20:08 IMPRESSION: Focal periosteal indistinctness involving the 3rd metatarsal diaphysis in the setting of a soft tissue infection is suggestive of osteomyelitis. Cortical irregularity involving the base of the 3rd digit proximal phalanx is consistent with posttraumatic change of unknown chronicity. Lower Extremity MRI 06/11/16 00:00 IMPRESSION: Plantar ulcer, foot cellulitis, osteomyelitis as above Guidance Fluoroscopy 06/12/16 00:00 IMPRESSION: SUCCESSFUL PLACEMENT OF A 5 FR DUAL LUMEN 47 CM PICC IN THE LEFT BASILIC VEIN. Interventional Vascular Procedure 06/12/16 00:00 IMPRESSION: SUCCESSFUL PLACEMENT OF A 5 FR DUAL LUMEN 47 CM PICC IN THE LEFT BASILIC VEIN. PICC Line Insertion 06/12/16 04:46 IMPRESSION: SUCCESSFUL PLACEMENT OF A 5 FR DUAL LUMEN 47 CM PICC IN THE LEFT BASILIC VEIN. Assessment & Plan - Diagnosis (1) Foot ulcer, right Qualifiers: Non-pressure ulcer stage: limited to breakdown of skin Qualified Code(s ): L97.511 - Non-pressure chronic ulcer of other part of right foot limited to breakdown of skin Is this a current diagnosis for this admission?: Yes (2) Osteomyelitis Qualifiers: Osteomyelitis location: foot Laterality: right Chronicity: unspecified Qualified Code(s): M86.9 - Osteomyelitis, unspecified Is this a current diagnosis for this admission?: YesPlan: Late note. Rounding late for 06/13/2016. Diabetic foot wound with osteomyelitis. The wound looks better today in that the third toe is less erythematous, indurated and edematous. Eventual needs transmetatarsal amp. Last dose of Plavix was the morning of 06/11/2016. Probably needs to wait at least one or 2 more days prior to amp. Patient would not talk to me today. Was refusing treatments overnight. (3) Diabetes mellitus with foot ulcer and gangrene Is this a current diagnosis for this admission?: Yes
[2016-06-14] MEDS: CEFAZOLIN SODIUM 1 GM in DEXTROSE 5%-WATER 50 ML IV SCH ×2 (13:30→21:59)
[2016-06-14] MEDS: NORMAL SALINE 10 ML SDV (SCHEDULED) IV SCH ×2 (13:31→21:59)
[2016-06-14] MEDS: ATENOLOL 50 MG TABLET PO SCH (13:32)
[2016-06-14] MEDS: HYDROCHLOROTHIAZIDE 12.5 MG CAPSULE PO SCH (13:32)
[2016-06-14] MEDS: BENAZEPRIL HCL 20 MG TABLET PO SCH (13:32)
[2016-06-14] MEDS: ASPIRIN 81 MG TABLET, ENT COATED PO SCH (13:32)
[2016-06-14] MEDS: INSULIN GLARGINE,HUM.REC.ANLOG 1,000 UNIT/10 ML UNIT SUBCUT SCH (21:59)
[2016-06-14] MEDS: ATORVASTATIN CALCIUM 10 MG TABLET PO SCH (22:00)
[2016-06-14] MEDS: INSULIN LISPRO 100 UNIT/ML 3 ML VIAL SUBCUT PRN (22:00)
[2016-06-15] MEDS: CEFAZOLIN SODIUM 1 GM in DEXTROSE 5%-WATER 50 ML IV SCH ×3 (05:01→22:10)
[2016-06-15] MEDS: ENOXAPARIN SODIUM INJ 30 MG/0.3 ML DISP.SYRIN SUBCUT SCH (08:24)
[2016-06-15] MEDS: INSULIN LISPRO 100 UNIT/ML 3 ML VIAL SUBCUT PRN (08:25)
[2016-06-15] MEDS: DEXTROSE 5%-NORMAL SALINE 1,000 ML IV PRN ×2 (11:09→22:10)
[2016-06-15] MEDS: ASPIRIN 81 MG TABLET, ENT COATED PO SCH (11:43)
[2016-06-15] MEDS: NORMAL SALINE 10 ML SDV (SCHEDULED) IV SCH ×2 (11:44→22:10)
[2016-06-15] MEDS: HYDROCHLOROTHIAZIDE 12.5 MG CAPSULE PO SCH (11:45)
[2016-06-15] MEDS: BENAZEPRIL HCL 20 MG TABLET PO SCH (11:45)
[2016-06-15] MEDS: ATENOLOL 50 MG TABLET PO SCH (11:45)
--- NOTE | 2016-06-15 19:58 | PDOC PROGRESS REPORT ---
Subjective Progress Note for:: 06/14/16 Subjective:: Patient was not cooperative with the nurses. Refused heparin flushes of the PICC line, Physical Exam Vital Signs: Temp Pulse Resp BP Pulse Ox 97.4 F 64 18 106/68 100 06/15/16 15:34 06/15/16 15:34 06/15/16 15:34 06/15/16 15:34 06/15/16 15:34 Intake & Output 06/14/16 06/15/16 06/16/16 06:59 06:59 06:59 Intake Total 1485 3950 2510 Balance 1485 3950 2510 Weight 125.5 kg 125.5 kg General appearance: PRESENT: no acute distress Eye exam: PRESENT: PERRLA Respiratory exam: PRESENT: clear to auscultation adore Cardiovascular exam: PRESENT: +S1, +S2 GI/Abdominal exam: PRESENT: soft Neurological exam: PRESENT: alert Results Laboratory Results: 06/14/16 04:47 06/13/16 05:30 06/10/16 07:10 Blood Blood Culture - Final NO GROWTH IN 5 DAYS 06/10/16 06/10/16 06/11/16 18:45 18:45 00:28 Creatine Kinase 114 88 CK-MB (CK-2) 0.64 Troponin I < 0.012 06/11/16 06/11/16 06/11/16 00:28 10:15 10:15 Creatine Kinase 85 CK-MB (CK-2) 0.41 0.36 Troponin I < 0.012 < 0.012 Impressions: Foot X-Ray 06/09/16 20:08 IMPRESSION: Focal periosteal indistinctness involving the 3rd metatarsal diaphysis in the setting of a soft tissue infection is suggestive of osteomyelitis. Cortical irregularity involving the base of the 3rd digit proximal phalanx is consistent with posttraumatic change of unknown chronicity. Lower Extremity MRI 06/11/16 00:00 IMPRESSION: Plantar ulcer, foot cellulitis, osteomyelitis as above Guidance Fluoroscopy 06/12/16 00:00 IMPRESSION: SUCCESSFUL PLACEMENT OF A 5 FR DUAL LUMEN 47 CM PICC IN THE LEFT BASILIC VEIN. Interventional Vascular Procedure 06/12/16 00:00 IMPRESSION: SUCCESSFUL PLACEMENT OF A 5 FR DUAL LUMEN 47 CM PICC IN THE LEFT BASILIC VEIN. PICC Line Insertion 06/12/16 04:46 IMPRESSION: SUCCESSFUL PLACEMENT OF A 5 FR DUAL LUMEN 47 CM PICC IN THE LEFT BASILIC VEIN. Assessment & Plan - Diagnosis (1) Osteomyelitis of foot, right, acute Is this a current diagnosis for this admission?: Yes (2) CVA (cerebral vascular accident) Qualifiers: CVA mechanism: stenosis Laterality of affected vessel: unspecified Is this a current diagnosis for this admission?: Yes (3) Diabetes mellitus with foot ulcer and gangrene Is this a current diagnosis for this admission?: Yes (4) HIV (human immunodeficiency virus infection) Is this a current diagnosis for this admission?: Yes (5) HTN (hypertension) Qualifiers: Hypertension type: essential hypertension Qualified Code(s): I10 - Essential (primary) hypertension Is this a current diagnosis for this admission?: Yes (6) Non compliance w medication regimen Is this a current diagnosis for this admission?: Yes
--- NOTE | 2016-06-15 19:59 | PDOC PROGRESS REPORT ---
Subjective Progress Note for:: 06/15/16 Subjective:: Patient seen by the bedside, no new complaints Physical Exam Vital Signs: Temp Pulse Resp BP Pulse Ox 97.4 F 64 18 106/68 100 06/15/16 15:34 06/15/16 15:34 06/15/16 15:34 06/15/16 15:34 06/15/16 15:34 Intake & Output 06/14/16 06/15/16 06/16/16 06:59 06:59 06:59 Intake Total 1485 3950 2510 Balance 1485 3950 2510 Weight 125.5 kg 125.5 kg General appearance: PRESENT: no acute distress Eye exam: PRESENT: PERRLA Respiratory exam: PRESENT: clear to auscultation adore Cardiovascular exam: PRESENT: +S1, +S2 GI/Abdominal exam: PRESENT: soft Results Laboratory Results: 06/14/16 04:47 06/13/16 05:30 06/10/16 07:10 Blood Blood Culture - Final NO GROWTH IN 5 DAYS 06/10/16 06/10/16 06/11/16 18:45 18:45 00:28 Creatine Kinase 114 88 CK-MB (CK-2) 0.64 Troponin I < 0.012 06/11/16 06/11/16 06/11/16 00:28 10:15 10:15 Creatine Kinase 85 CK-MB (CK-2) 0.41 0.36 Troponin I < 0.012 < 0.012 Impressions: Foot X-Ray 06/09/16 20:08 IMPRESSION: Focal periosteal indistinctness involving the 3rd metatarsal diaphysis in the setting of a soft tissue infection is suggestive of osteomyelitis. Cortical irregularity involving the base of the 3rd digit proximal phalanx is consistent with posttraumatic change of unknown chronicity. Lower Extremity MRI 06/11/16 00:00 IMPRESSION: Plantar ulcer, foot cellulitis, osteomyelitis as above Guidance Fluoroscopy 06/12/16 00:00 IMPRESSION: SUCCESSFUL PLACEMENT OF A 5 FR DUAL LUMEN 47 CM PICC IN THE LEFT BASILIC VEIN. Interventional Vascular Procedure 06/12/16 00:00 IMPRESSION: SUCCESSFUL PLACEMENT OF A 5 FR DUAL LUMEN 47 CM PICC IN THE LEFT BASILIC VEIN. PICC Line Insertion 06/12/16 04:46 IMPRESSION: SUCCESSFUL PLACEMENT OF A 5 FR DUAL LUMEN 47 CM PICC IN THE LEFT BASILIC VEIN. Assessment & Plan - Diagnosis (1) Osteomyelitis of foot, right, acute Is this a current diagnosis for this admission?: Yes (2) CVA (cerebral vascular accident) Qualifiers: CVA mechanism: stenosis Laterality of affected vessel: unspecified Is this a current diagnosis for this admission?: Yes (3) Diabetes mellitus with foot ulcer and gangrene Is this a current diagnosis for this admission?: Yes (4) HIV (human immunodeficiency virus infection) Is this a current diagnosis for this admission?: Yes (5) HTN (hypertension) Qualifiers: Hypertension type: essential hypertension Qualified Code(s): I10 - Essential (primary) hypertension Is this a current diagnosis for this admission?: Yes (6) Non compliance w medication regimen Is this a current diagnosis for this admission?: Yes
[2016-06-15] MEDS: OXYCODONE-ACETAMINOPHEN 5-325 MG TABLET PO PRN (22:09)
[2016-06-15] MEDS: ATORVASTATIN CALCIUM 10 MG TABLET PO SCH (22:10)
[2016-06-15] MEDS: INSULIN GLARGINE,HUM.REC.ANLOG 1,000 UNIT/10 ML UNIT SUBCUT SCH (22:17)
[2016-06-16] MEDS: CEFAZOLIN SODIUM 1 GM in DEXTROSE 5%-WATER 50 ML IV SCH ×3 (05:14→22:43)
[2016-06-16] MEDS: ENOXAPARIN SODIUM INJ 30 MG/0.3 ML DISP.SYRIN SUBCUT SCH (07:45)
[2016-06-16] MEDS: DEXTROSE 5%-NORMAL SALINE 1,000 ML IV PRN (09:24)
[2016-06-16] MEDS: HYDROCHLOROTHIAZIDE 12.5 MG CAPSULE PO SCH (11:41)
[2016-06-16] MEDS: ASPIRIN 81 MG TABLET, ENT COATED PO SCH (11:41)
[2016-06-16] MEDS: BENAZEPRIL HCL 20 MG TABLET PO SCH (11:42)
[2016-06-16] MEDS: ATENOLOL 50 MG TABLET PO SCH (11:42)
[2016-06-16] MEDS: NORMAL SALINE 10 ML SDV (SCHEDULED) IV SCH ×2 (11:42→23:47)
--- NOTE | 2016-06-16 19:02 | PDOC PROGRESS REPORT ---
Subjective Progress Note for:: 06/16/16 Subjective:: Patient seen by the bedside, no new complaints Physical Exam Vital Signs: Temp Pulse Resp BP Pulse Ox 97.1 F 68 16 152/85 H 100 06/16/16 15:00 06/16/16 15:00 06/16/16 15:00 06/16/16 15:00 06/16/16 15:00 Intake & Output 06/15/16 06/16/16 06/17/16 06:59 06:59 06:59 Intake Total 3950 4310 221 Balance 3950 4310 221 Weight 125.5 kg 125.4 kg General appearance: PRESENT: no acute distress Eye exam: PRESENT: PERRLA Respiratory exam: PRESENT: clear to auscultation adore Cardiovascular exam: PRESENT: +S1, +S2 GI/Abdominal exam: PRESENT: soft Results Laboratory Results: 06/14/16 04:47 06/13/16 05:30 06/10/16 06/10/16 06/11/16 18:45 18:45 00:28 Creatine Kinase 114 88 CK-MB (CK-2) 0.64 Troponin I < 0.012 06/11/16 06/11/16 06/11/16 00:28 10:15 10:15 Creatine Kinase 85 CK-MB (CK-2) 0.41 0.36 Troponin I < 0.012 < 0.012 Impressions: Foot X-Ray 06/09/16 20:08 IMPRESSION: Focal periosteal indistinctness involving the 3rd metatarsal diaphysis in the setting of a soft tissue infection is suggestive of osteomyelitis. Cortical irregularity involving the base of the 3rd digit proximal phalanx is consistent with posttraumatic change of unknown chronicity. Lower Extremity MRI 06/11/16 00:00 IMPRESSION: Plantar ulcer, foot cellulitis, osteomyelitis as above Guidance Fluoroscopy 06/12/16 00:00 IMPRESSION: SUCCESSFUL PLACEMENT OF A 5 FR DUAL LUMEN 47 CM PICC IN THE LEFT BASILIC VEIN. Interventional Vascular Procedure 06/12/16 00:00 IMPRESSION: SUCCESSFUL PLACEMENT OF A 5 FR DUAL LUMEN 47 CM PICC IN THE LEFT BASILIC VEIN. PICC Line Insertion 06/12/16 04:46 IMPRESSION: SUCCESSFUL PLACEMENT OF A 5 FR DUAL LUMEN 47 CM PICC IN THE LEFT BASILIC VEIN. Assessment & Plan - Diagnosis (1) Osteomyelitis of foot, right, acute Is this a current diagnosis for this admission?: Yes (2) CVA (cerebral vascular accident) Qualifiers: CVA mechanism: stenosis Laterality of affected vessel: unspecified Is this a current diagnosis for this admission?: Yes (3) Diabetes mellitus with foot ulcer and gangrene Is this a current diagnosis for this admission?: Yes (4) HIV (human immunodeficiency virus infection) Is this a current diagnosis for this admission?: Yes (5) HTN (hypertension) Qualifiers: Hypertension type: essential hypertension Qualified Code(s): I10 - Essential (primary) hypertension Is this a current diagnosis for this admission?: Yes (6) Non compliance w medication regimen Is this a current diagnosis for this admission?: Yes
--- NOTE | 2016-06-16 20:08 | PROGRESS NOTE E ---
Progress Note NAME: CAMILA MORENO : 1970 AGE: 45Y DATE: 06/16/2016 ROOM: 531 SUBJECTIVE: The patient is without complaints at this time. The patient remains somewhat somnolent during my visits but is arousable. Vital signs are noted. OBJECTIVE: VITAL SIGNS: Blood pressure is 152/85. Temperature is 97.1. Pulse 68. Respirations 16. Saturations 100. EXTREMITIES: The patient's dressing is not taken down. ASSESSMENT: NON-SALVAGEABLE PROXIMAL RIGHT FOOT. PLAN: The patient is scheduled for right transmetatarsal amputation. We will make the patient NPO in the event that Dr. Garcia plans to operate on him this week. The patient has been off Plavix for what will be 6 days by Friday. DICTATING PHYSICIAN: JUAN CARLOS HALL M.D. [id number] PHY#: [id number] ID: [id number] JOB#: [id number] ACCT: [id number] cc:JUAN CARLOS HALL M.D. >
[2016-06-16] MEDS ORDERED: CEFAZOLIN INJ 1 GM VIAL ONE (22:34)
[2016-06-16] MEDS: ATORVASTATIN CALCIUM 10 MG TABLET PO SCH (22:43)
[2016-06-16] MEDS: INSULIN GLARGINE,HUM.REC.ANLOG 1,000 UNIT/10 ML UNIT SUBCUT SCH (23:47)
[2016-06-17] MEDS: OXYCODONE-ACETAMINOPHEN 5-325 MG TABLET PO PRN (02:31)
[2016-06-17] MEDS: CEFAZOLIN SODIUM 1 GM in DEXTROSE 5%-WATER 50 ML IV SCH ×3 (06:58→23:12)
[2016-06-17] MEDS ORDERED: SUCCINYLCHOLINE CHLORIDE INJ 200 MG/10 ML VIAL ONE (07:22)
[2016-06-17] MEDS: DEXTROSE 5%-NORMAL SALINE 1,000 ML IV PRN ×2 (08:11→23:12)
[2016-06-17] MEDS: ENOXAPARIN SODIUM INJ 30 MG/0.3 ML DISP.SYRIN SUBCUT SCH (08:11)
[2016-06-17] MEDS: ATENOLOL 50 MG TABLET PO SCH (10:35)
[2016-06-17] MEDS ORDERED: ATENOLOL 50 MG TABLET PO ONE (12:00)
[2016-06-17] MEDS ORDERED: LIDOCAINE 1% INJ-PF (10 MG/ML) 30 ML SDV ONE ×2 (16:28→17:35)
--- NOTE | 2016-06-17 16:34 | PDOC PROGRESS REPORT ---
Subjective Progress Note for:: 06/17/16 Subjective:: No complaints; patient hiding under blanket Physical Exam Vital Signs: Temp Pulse Resp BP Pulse Ox 98.2 F 63 16 154/76 H 98 06/17/16 10:18 06/17/16 14:00 06/17/16 10:18 06/17/16 10:18 06/17/16 10:18 Intake & Output 06/16/16 06/17/16 06/18/16 06:59 06:59 06:59 Intake Total 4310 4252 Output Total 750 Balance 4310 3502 Weight 125.4 kg 125 kg General appearance: PRESENT: no acute distress Musculoskeletal exam: PRESENT: other - Right foot examined moderately swollen; lichenified skin along the medial plantar aspect; toes 1 and 5 surgically absent including the entire first ray. Toe 3 is clearly in jeopardy The plantar surface of the foot has an open wound with seropurulent discharge and exposed tendons with chronic granulation tissue. Results Laboratory Results: 06/14/16 04:47 06/13/16 05:30 06/10/16 06/10/16 06/11/16 18:45 18:45 00:28 Creatine Kinase 114 88 CK-MB (CK-2) 0.64 Troponin I < 0.012 06/11/16 06/11/16 06/11/16 00:28 10:15 10:15 Creatine Kinase 85 CK-MB (CK-2) 0.41 0.36 Troponin I < 0.012 < 0.012 Impressions: Foot X-Ray 06/09/16 20:08 IMPRESSION: Focal periosteal indistinctness involving the 3rd metatarsal diaphysis in the setting of a soft tissue infection is suggestive of osteomyelitis. Cortical irregularity involving the base of the 3rd digit proximal phalanx is consistent with posttraumatic change of unknown chronicity. Lower Extremity MRI 06/11/16 00:00 IMPRESSION: Plantar ulcer, foot cellulitis, osteomyelitis as above Guidance Fluoroscopy 06/12/16 00:00 IMPRESSION: SUCCESSFUL PLACEMENT OF A 5 FR DUAL LUMEN 47 CM PICC IN THE LEFT BASILIC VEIN. Interventional Vascular Procedure 06/12/16 00:00 IMPRESSION: SUCCESSFUL PLACEMENT OF A 5 FR DUAL LUMEN 47 CM PICC IN THE LEFT BASILIC VEIN. PICC Line Insertion 06/12/16 04:46 IMPRESSION: SUCCESSFUL PLACEMENT OF A 5 FR DUAL LUMEN 47 CM PICC IN THE LEFT BASILIC VEIN. Assessment & Plan - Diagnosis (1) Osteomyelitis of foot, right, acute Is this a current diagnosis for this admission?: YesPlan: The patient has chronic wounds involving the skin and subcutaneous tissue fascia and bone of the right remaining foot, specifically the third phalanx and metatarsal region. In light of the large open wound on the plantar surface of the forefoot, and surgically absent toes 1 and 5, the most appropriate next step is a completion transmetatarsal amputation. His may require a staged procedure. The patient is not competent to make decisions regarding his medical care. Surgical team members have communicated with the patient's sister, Nilsa. It left a message with Nilsa to call us when available. We will proceed with first stage of the transmetatarsal amputation today. - Time Time Spent with patient: 15-24 minutes
[2016-06-17] MEDS ORDERED: FENTANYL CITRATE INJ/PF 100 MCG/2 ML AMPUL ONE (16:37)
[2016-06-17] MEDS ORDERED: MIDAZOLAM 2 MG/2 ML INJ ONE (16:37)
[2016-06-17] MEDS ORDERED: ONDANSETRON HCL INJ/PF 4 MG/2 ML SDV ONE (16:37)
[2016-06-17] MEDS ORDERED: PROPOFOL INJ 200 MG/20 ML VIAL IV ONE (16:38)
[2016-06-17] MEDS ORDERED: MORPHINE SULFATE 10 MG/ML INJ IV PRN (17:39)
[2016-06-17] MEDS ORDERED: FENTANYL CITRATE INJ/PF 100 MCG/2 ML AMPUL IV PRN (17:39)
[2016-06-17] MEDS ORDERED: MEPERIDINE HCL/PF INJ 25 MG/1 ML DISP.SYRIN IV PRN (17:39)
[2016-06-17] MEDS ORDERED: ONDANSETRON HCL INJ/PF 4 MG/2 ML SDV IV PRN (17:39)
[2016-06-17] MEDS ORDERED: DIPHENHYDRAMINE HCL 50 MG/ML VIAL IV PRN (17:39)
[2016-06-17] MEDS ORDERED: PROMETHAZINE HCL INJ 25 MG/1 ML VIAL IV PRN ×2 (17:39)
--- NOTE | 2016-06-17 18:00 | Operative Report ---
Operative Report DATE OF SURGERY: 06/17/16 PREOPERATIVE DIAGNOSIS: Osteomyelitis of the right foot involving third metatarsal, second and fourth as well POSTOPERATIVE DIAGNOSIS: Same OPERATION: Complete ray amputation of second, third and fourth phalanges and metatarsal heads metatarsal on the right foot irrigation and packing open of wound SURGEON: MICHELLE PALM ANESTHESIA: GA TISSUE REMOVED OR ALTERED: Toes from right foot 2, 3, 4 COMPLICATIONS: None ESTIMATED BLOOD LOSS: 15 mL INTRAOPERATIVE FINDINGS: See below PROCEDURE: After obtaining informed consent the patient's family, the patient taken the operating room where general anesthesia was induced. The right foot was exposed , prepped and draped sterile fashion. Surgical plan surgical timeout were conducted The right foot was significant for surgically absent first and fifth toes up. Right third toe was in jeopardy with open wounds. There was also a large plantar surface wound over the metatarsal heads to 3 and 4 Toes 2-3 and 4 were excised down to the metatarsophalangeal joint in one unit by using the #10 knife. Specimen was sent off to pathology as toes to 3 and 4. The periosteum exposed along the metatarsal heads to 3 and 4 by stripping away the dorsal tendons. The metatarsal bones were transected with bone cutters. If of note there was no evidence of pus or foul smell. Third metatarsal head was necrotic. Intraoperative cultures were obtained. There was rather brisk bleeding from the cut soft tissue surfaces. I did perform excisional debridement of chronic granulation tissue, and hypertrophic plantar skin from the chronic complex mal perforans ulcer. Wound was irrigated multiple times with saline. Check for any mechanical bleeding was none. Dressing was used including a Xeroform 4 x 4's Kerlix and David wrap. Postop procedure was extubated and taken recovery in stable condition consulted.
[2016-06-17] MEDS: NORMAL SALINE 10 ML SDV (SCHEDULED) IV SCH ×2 (19:46→23:15)
[2016-06-17] MEDS: ASPIRIN 81 MG TABLET, ENT COATED PO SCH (20:25)
[2016-06-17] MEDS: BENAZEPRIL HCL 20 MG TABLET PO SCH (23:13)
[2016-06-17] MEDS: HYDROCHLOROTHIAZIDE 12.5 MG CAPSULE PO SCH (23:14)
[2016-06-17] MEDS: ATORVASTATIN CALCIUM 10 MG TABLET PO SCH (23:14)
[2016-06-17] MEDS: INSULIN GLARGINE,HUM.REC.ANLOG 1,000 UNIT/10 ML UNIT SUBCUT SCH (23:16)
[2016-06-18] MEDS: CEFAZOLIN SODIUM 1 GM in DEXTROSE 5%-WATER 50 ML IV SCH ×2 (06:21→17:06)
[2016-06-18] MEDS: ATENOLOL 50 MG TABLET PO SCH (11:11)
[2016-06-18] MEDS: BENAZEPRIL HCL 20 MG TABLET PO SCH (11:11)
[2016-06-18] MEDS: HYDROCHLOROTHIAZIDE 12.5 MG CAPSULE PO SCH (11:11)
[2016-06-18] MEDS: ASPIRIN 81 MG TABLET, ENT COATED PO SCH (11:11)
[2016-06-18] MEDS: ENOXAPARIN SODIUM INJ 30 MG/0.3 ML DISP.SYRIN SUBCUT SCH (11:12)
[2016-06-18] MEDS: NORMAL SALINE 10 ML SDV (SCHEDULED) IV SCH (11:12)
[2016-06-18] MEDS ORDERED: LORAZEPAM 1 MG TABLET PO PRN (16:38)
[2016-06-18] MEDS ORDERED: LORAZEPAM 1 MG TABLET PO ONE (16:45)
--- NOTE | 2016-06-18 17:56 | PDOC PROGRESS REPORT ---
Subjective Progress Note for:: 06/18/16 Subjective:: Patient is encountered in the sitting position. Per nursing report he refuses to lay down and elevate his leg as requested repeatedly throughout the day. After 4-5 minutes of coaxing, he agrees to lay flat for dressing change. His son arrives in the room and assist in obtaining patient compliance with dressing change. Physical Exam Vital Signs: Temp Pulse Resp BP Pulse Ox 99.1 F 118 H 16 153/82 H 96 06/18/16 13:08 06/18/16 13:08 06/18/16 13:08 06/18/16 13:08 06/18/16 13:08 Intake & Output 06/17/16 06/18/16 06/19/16 06:59 06:59 06:59 Intake Total 4252 5900 570 Output Total 750 420 Balance 3502 5480 570 Weight 125 kg 125 kg General appearance: PRESENT: no acute distress Eye exam: PRESENT: other - Strabismus Extremities exam: PRESENT: other - Right foot TMA. Wound care: Surgical dressing is removed. Wound bed appears healthy with no necrotic tissue. Xeroform gauze is removed. Good blood supply. Wound is redressed with Xeroform gauze, gauze 4 x 4's, Kerlix roll and David roll. Patient tolerated without pain. Neurological exam: PRESENT: other - Right-sided weakness. Decreased verbal but improved with son once healthcare providers leave the room. Results Laboratory Results: 06/14/16 04:47 06/13/16 05:30 06/10/16 06/10/16 06/11/16 18:45 18:45 00:28 Creatine Kinase 114 88 CK-MB (CK-2) 0.64 Troponin I < 0.012 06/11/16 06/11/16 06/11/16 00:28 10:15 10:15 Creatine Kinase 85 CK-MB (CK-2) 0.41 0.36 Troponin I < 0.012 < 0.012 Impressions: Foot X-Ray 06/09/16 20:08 IMPRESSION: Focal periosteal indistinctness involving the 3rd metatarsal diaphysis in the setting of a soft tissue infection is suggestive of osteomyelitis. Cortical irregularity involving the base of the 3rd digit proximal phalanx is consistent with posttraumatic change of unknown chronicity. Lower Extremity MRI 06/11/16 00:00 IMPRESSION: Plantar ulcer, foot cellulitis, osteomyelitis as above Guidance Fluoroscopy 06/12/16 00:00 IMPRESSION: SUCCESSFUL PLACEMENT OF A 5 FR DUAL LUMEN 47 CM PICC IN THE LEFT BASILIC VEIN. Interventional Vascular Procedure 06/12/16 00:00 IMPRESSION: SUCCESSFUL PLACEMENT OF A 5 FR DUAL LUMEN 47 CM PICC IN THE LEFT BASILIC VEIN. PICC Line Insertion 06/12/16 04:46 IMPRESSION: SUCCESSFUL PLACEMENT OF A 5 FR DUAL LUMEN 47 CM PICC IN THE LEFT BASILIC VEIN. Assessment & Plan - Diagnosis (1) Foot ulcer, right Qualifiers: Non-pressure ulcer stage: limited to breakdown of skin Qualified Code(s ): L97.511 - Non-pressure chronic ulcer of other part of right foot limited to breakdown of skin Is this a current diagnosis for this admission?: Yes (2) Osteomyelitis Qualifiers: Osteomyelitis location: foot Laterality: right Chronicity: unspecified Qualified Code(s): M86.9 - Osteomyelitis, unspecified Is this a current diagnosis for this admission?: YesPlan: Status post right TMA on 06/18/2016. Continue daily wound care. Recommend right leg elevation over the level of the heart, but patient compliance is an issue. We will need home health care and follow-up in wound clinic. I ordered both. (3) Diabetes mellitus with foot ulcer and gangrene Is this a current diagnosis for this admission?: Yes
[2016-06-18] MEDS ORDERED: LORAZEPAM INJ 2 MG/1 ML VIAL IV ONE (18:00)
--- NOTE | 2016-06-18 21:00 | PDOC PROGRESS REPORT ---
Subjective Progress Note for:: 06/17/16 Subjective:: There is no family member available to sign consent for surgical procedure. Patient needed this procedure because is septic on a potential for life- threatening he underwent right complete trans metatarsal amputation. Physical Exam Vital Signs: Temp Pulse Resp BP Pulse Ox 98.0 F 93 19 128/74 H 98 06/17/16 18:38 06/17/16 18:38 06/17/16 18:38 06/17/16 18:38 06/17/16 18:38 Intake & Output 06/16/16 06/17/16 06/18/16 06:59 06:59 06:59 Intake Total 4310 4252 2700 Output Total 750 20 Balance 4310 3502 2680 Weight 125.4 kg 125 kg General appearance: PRESENT: no acute distress Respiratory exam: PRESENT: clear to auscultation adore Cardiovascular exam: PRESENT: +S1, +S2 GI/Abdominal exam: PRESENT: soft Neurological exam: PRESENT: alert Results Laboratory Results: 06/14/16 04:47 06/13/16 05:30 06/10/16 06/10/16 06/11/16 18:45 18:45 00:28 Creatine Kinase 114 88 CK-MB (CK-2) 0.64 Troponin I < 0.012 06/11/16 06/11/16 06/11/16 00:28 10:15 10:15 Creatine Kinase 85 CK-MB (CK-2) 0.41 0.36 Troponin I < 0.012 < 0.012 Impressions: Foot X-Ray 06/09/16 20:08 IMPRESSION: Focal periosteal indistinctness involving the 3rd metatarsal diaphysis in the setting of a soft tissue infection is suggestive of osteomyelitis. Cortical irregularity involving the base of the 3rd digit proximal phalanx is consistent with posttraumatic change of unknown chronicity. Lower Extremity MRI 06/11/16 00:00 IMPRESSION: Plantar ulcer, foot cellulitis, osteomyelitis as above Guidance Fluoroscopy 06/12/16 00:00 IMPRESSION: SUCCESSFUL PLACEMENT OF A 5 FR DUAL LUMEN 47 CM PICC IN THE LEFT BASILIC VEIN. Interventional Vascular Procedure 06/12/16 00:00 IMPRESSION: SUCCESSFUL PLACEMENT OF A 5 FR DUAL LUMEN 47 CM PICC IN THE LEFT BASILIC VEIN. PICC Line Insertion 06/12/16 04:46 IMPRESSION: SUCCESSFUL PLACEMENT OF A 5 FR DUAL LUMEN 47 CM PICC IN THE LEFT BASILIC VEIN. Assessment & Plan - Diagnosis (1) Osteomyelitis of foot, right, acute Is this a current diagnosis for this admission?: Yes (2) CVA (cerebral vascular accident) Qualifiers: CVA mechanism: stenosis Laterality of affected vessel: unspecified Is this a current diagnosis for this admission?: Yes (3) Diabetes mellitus with foot ulcer and gangrene Is this a current diagnosis for this admission?: Yes (4) HIV (human immunodeficiency virus infection) Is this a current diagnosis for this admission?: Yes (5) HTN (hypertension) Qualifiers: Hypertension type: essential hypertension Qualified Code(s): I10 - Essential (primary) hypertension Is this a current diagnosis for this admission?: Yes (6) Non compliance w medication regimen Is this a current diagnosis for this admission?: Yes
[2016-06-19] MEDS: CEFAZOLIN SODIUM 1 GM in DEXTROSE 5%-WATER 50 ML IV SCH ×3 (00:30→16:12)
[2016-06-19] MEDS: NORMAL SALINE 10 ML SDV (SCHEDULED) IV SCH ×2 (00:31→10:07)
[2016-06-19] MEDS: INSULIN GLARGINE,HUM.REC.ANLOG 1,000 UNIT/10 ML UNIT SUBCUT SCH (00:32)
[2016-06-19] MEDS: HYDROCHLOROTHIAZIDE 12.5 MG CAPSULE PO SCH (10:01)
[2016-06-19] MEDS: ENOXAPARIN SODIUM INJ 30 MG/0.3 ML DISP.SYRIN SUBCUT SCH (10:05)
[2016-06-19] MEDS: ASPIRIN 81 MG TABLET, ENT COATED PO SCH (10:05)
[2016-06-19] MEDS: BENAZEPRIL HCL 20 MG TABLET PO SCH (10:05)
[2016-06-19] MEDS: ATENOLOL 50 MG TABLET PO SCH (10:05)
[2016-06-19] MEDS: INSULIN LISPRO 100 UNIT/ML 3 ML VIAL SUBCUT PRN (12:31)
--- NOTE | 2016-06-19 17:40 | PDOC PROGRESS REPORT ---
Subjective Progress Note for:: 06/18/16 Subjective:: Patient had increase agitation today, requiring sedation with lorazepam Physical Exam Vital Signs: Temp Pulse Resp BP Pulse Ox 99.1 F 118 H 16 153/82 H 96 06/18/16 13:08 06/18/16 13:08 06/18/16 13:08 06/18/16 13:08 06/18/16 13:08 Intake & Output 06/17/16 06/18/16 06/19/16 06:59 06:59 06:59 Intake Total 4252 5900 570 Output Total 750 420 Balance 3502 5480 570 Weight 125 kg 125 kg General appearance: PRESENT: no acute distress Eye exam: PRESENT: PERRLA Neck exam: PRESENT: full ROM Respiratory exam: PRESENT: clear to auscultation adore Cardiovascular exam: PRESENT: RRR, +S1, +S2 Vascular exam: PRESENT: normal capillary refill GI/Abdominal exam: PRESENT: normal bowel sounds, soft Rectal exam: PRESENT: deferred Neurological exam: PRESENT: alert Skin exam: PRESENT: dry, intact, warm Results Laboratory Results: 06/14/16 04:47 06/13/16 05:30 06/10/16 06/10/16 06/11/16 18:45 18:45 00:28 Creatine Kinase 114 88 CK-MB (CK-2) 0.64 Troponin I < 0.012 06/11/16 06/11/16 06/11/16 00:28 10:15 10:15 Creatine Kinase 85 CK-MB (CK-2) 0.41 0.36 Troponin I < 0.012 < 0.012 Impressions: Foot X-Ray 06/09/16 20:08 IMPRESSION: Focal periosteal indistinctness involving the 3rd metatarsal diaphysis in the setting of a soft tissue infection is suggestive of osteomyelitis. Cortical irregularity involving the base of the 3rd digit proximal phalanx is consistent with posttraumatic change of unknown chronicity. Lower Extremity MRI 06/11/16 00:00 IMPRESSION: Plantar ulcer, foot cellulitis, osteomyelitis as above Guidance Fluoroscopy 06/12/16 00:00 IMPRESSION: SUCCESSFUL PLACEMENT OF A 5 FR DUAL LUMEN 47 CM PICC IN THE LEFT BASILIC VEIN. Interventional Vascular Procedure 06/12/16 00:00 IMPRESSION: SUCCESSFUL PLACEMENT OF A 5 FR DUAL LUMEN 47 CM PICC IN THE LEFT BASILIC VEIN. PICC Line Insertion 06/12/16 04:46 IMPRESSION: SUCCESSFUL PLACEMENT OF A 5 FR DUAL LUMEN 47 CM PICC IN THE LEFT BASILIC VEIN. Assessment & Plan - Diagnosis (1) Osteomyelitis of foot, right, acute Is this a current diagnosis for this admission?: Yes (2) CVA (cerebral vascular accident) Qualifiers: CVA mechanism: stenosis Laterality of affected vessel: unspecified Is this a current diagnosis for this admission?: Yes (3) Diabetes mellitus with foot ulcer and gangrene Is this a current diagnosis for this admission?: Yes (4) HIV (human immunodeficiency virus infection) Is this a current diagnosis for this admission?: Yes (5) HTN (hypertension) Qualifiers: Hypertension type: essential hypertension Qualified Code(s): I10 - Essential (primary) hypertension Is this a current diagnosis for this admission?: Yes (6) Non compliance w medication regimen Is this a current diagnosis for this admission?: Yes
--- NOTE | 2016-06-19 17:48 | PDOC DISCHARGE SUMMARY ---
General - Admit/Disc Date/PCP Admission Date/Primary Care Provider: 06/10/16 05:38 VERONIKA ALMANZA, Discharge Date: 06/19/16 - Discharge Diagnosis (1) Osteomyelitis of foot, right, acute Is this a current diagnosis for this admission?: Yes (2) CVA (cerebral vascular accident) Is this a current diagnosis for this admission?: Yes (3) Diabetes mellitus with foot ulcer and gangrene Is this a current diagnosis for this admission?: Yes (4) HIV (human immunodeficiency virus infection) Is this a current diagnosis for this admission?: Yes (5) HTN (hypertension) Is this a current diagnosis for this admission?: Yes (6) Non compliance w medication regimen Is this a current diagnosis for this admission?: Yes - Additional Information Resuscitation Status: Full Code Home Medications: Aspirin [Aspirin EC] 81 mg PO DAILY 06/10/16 Atazanavir Sulfate [Reyataz 300 mg Capsule] 300 mg PO QHS 06/10/16 Atenolol [Tenormin 50 mg Tablet] 50 mg PO DAILY 06/10/16 Benazepril/Hydrochlorothiazide [Lotensin Hct 20-12.5 mg Tablet] 1 tab PO DAILY 06/10/16 Clopidogrel Bisulfate [Plavix 75 mg Tablet] 75 mg PO DAILY 06/10/16 Emtricitabine/Tenofov Alafenam [Descovy 200-25 mg Tablet] 1 tab PO QHS 06/10/16 Famotidine [Pepcid 20 mg Tablet] 20 mg PO DAILY 06/10/16 Insulin Glargine,Hum.rec.anlog [Lantus Insulin 100 Unit/mL] 70 unit SUBCUT QHS 06/10/16 Isosorbide Mononitrate [Imdur 30 mg Tablet.er] 30 mg PO DAILY 06/10/16 Pravastatin Sodium [Pravachol] 40 mg PO QHS 06/10/16 Ritonavir [Norvir 100 mg Tablet] 100 mg PO QHS 06/10/16 Sertraline HCl [Zoloft 50 mg Tablet] 50 mg PO QHS 06/10/16 History of Present Illness History of Present Illness: CAMILA MORENO is a 45 year old male with history of diabetes mellitus, HIV infection, CVA, extremely noncompliant with his care, he can emergency room because of right foot pain, he was evaluated. X-ray was done that suggest osteomyelitis of the right foot. He follows with outpatient wound care center for the management of the foot ulcer Hospital Course Hospital Course: Patient was admitted because of osteomyelitis of the right foot, he was treated empirically with intravenous Zosyn and vancomycin, he was seen by the surgeon and he underwent complete amputation of the second, third and fourth phalanges and metatarsal heads, this was done on to 06/17/2016. He was seen by Dr. Shelley,General surgery. Physical Exam Vital Signs: Temp Pulse Resp BP Pulse Ox 98.2 F 72 16 167/92 H 100 06/19/16 15:04 06/19/16 15:04 06/19/16 15:04 06/19/16 15:04 06/19/16 15:04 Intake & Output 06/18/16 06/19/16 06/20/16 06:59 06:59 06:59 Intake Total 5900 1595 Output Total 420 625 Balance 5480 970 Weight 125 kg 125 kg General appearance: PRESENT: no acute distress Eye exam: PRESENT: PERRLA Respiratory exam: PRESENT: clear to auscultation adore Cardiovascular exam: PRESENT: +S1, +S2 GI/Abdominal exam: PRESENT: soft Neurological exam: PRESENT: alert Results Laboratory Results: 06/14/16 04:47 06/13/16 05:30 06/10/16 06/10/16 06/11/16 18:45 18:45 00:28 Creatine Kinase 114 88 CK-MB (CK-2) 0.64 Troponin I < 0.012 06/11/16 06/11/16 06/11/16 00:28 10:15 10:15 Creatine Kinase 85 CK-MB (CK-2) 0.41 0.36 Troponin I < 0.012 < 0.012 Impressions: Foot X-Ray 06/09/16 20:08 IMPRESSION: Focal periosteal indistinctness involving the 3rd metatarsal diaphysis in the setting of a soft tissue infection is suggestive of osteomyelitis. Cortical irregularity involving the base of the 3rd digit proximal phalanx is consistent with posttraumatic change of unknown chronicity. Lower Extremity MRI 06/11/16 00:00 IMPRESSION: Plantar ulcer, foot cellulitis, osteomyelitis as above Guidance Fluoroscopy 06/12/16 00:00 IMPRESSION: SUCCESSFUL PLACEMENT OF A 5 FR DUAL LUMEN 47 CM PICC IN THE LEFT BASILIC VEIN. Interventional Vascular Procedure 06/12/16 00:00 IMPRESSION: SUCCESSFUL PLACEMENT OF A 5 FR DUAL LUMEN 47 CM PICC IN THE LEFT BASILIC VEIN. PICC Line Insertion 06/12/16 04:46
[2016-06-19 18:46] VITALS: BP 103/69
--- NOTE | 2016-06-20 06:14 | PDOC PROGRESS REPORT ---
Subjective Progress Note for:: 06/19/16 Subjective:: Late entry. Patient is sitting at bedside anxious to go home. Placed in the supine position. Dressing removed. No complaints with foot. Physical Exam Vital Signs: Temp Pulse Resp BP Pulse Ox 98.2 F 72 16 103/69 100 06/19/16 18:29 06/19/16 18:29 06/19/16 18:29 06/19/16 18:29 06/19/16 18:29 Intake & Output 06/18/16 06/19/16 06/20/16 06:59 06:59 06:59 Intake Total 5900 1595 450 Output Total 800 289 0613 Balance 5480 970 -750 Weight 125 kg 125 kg General appearance: PRESENT: no acute distress Eye exam: PRESENT: other - Strabismus Extremities exam: PRESENT: other - Dressing is removed. Wound looks healthy, granulation tissue in place. No purulence, no infection. Good blood supply. Wound is redressed with Xeroform gauze, gauze 4 x 4's, Kerlix roll, David wrap. Neurological exam: PRESENT: other - Right-sided weakness, speech deficits, chronic, unchanged. Results Laboratory Results: 06/14/16 04:47 06/13/16 05:30 06/10/16 06/10/16 06/11/16 18:45 18:45 00:28 Creatine Kinase 114 88 CK-MB (CK-2) 0.64 Troponin I < 0.012 06/11/16 06/11/16 06/11/16 00:28 10:15 10:15 Creatine Kinase 85 CK-MB (CK-2) 0.41 0.36 Troponin I < 0.012 < 0.012 Impressions: Foot X-Ray 06/09/16 20:08 IMPRESSION: Focal periosteal indistinctness involving the 3rd metatarsal diaphysis in the setting of a soft tissue infection is suggestive of osteomyelitis. Cortical irregularity involving the base of the 3rd digit proximal phalanx is consistent with posttraumatic change of unknown chronicity. Lower Extremity MRI 06/11/16 00:00 IMPRESSION: Plantar ulcer, foot cellulitis, osteomyelitis as above Guidance Fluoroscopy 06/12/16 00:00 IMPRESSION: SUCCESSFUL PLACEMENT OF A 5 FR DUAL LUMEN 47 CM PICC IN THE LEFT BASILIC VEIN. Interventional Vascular Procedure 06/12/16 00:00 IMPRESSION: SUCCESSFUL PLACEMENT OF A 5 FR DUAL LUMEN 47 CM PICC IN THE LEFT BASILIC VEIN. PICC Line Insertion 06/12/16 04:46 IMPRESSION: SUCCESSFUL PLACEMENT OF A 5 FR DUAL LUMEN 47 CM PICC IN THE LEFT BASILIC VEIN. Assessment & Plan - Diagnosis (1) Foot ulcer, right Qualifiers: Non-pressure ulcer stage: limited to breakdown of skin Qualified Code(s ): L97.511 - Non-pressure chronic ulcer of other part of right foot limited to breakdown of skin Is this a current diagnosis for this admission?: Yes (2) Osteomyelitis Qualifiers: Osteomyelitis location: foot Laterality: right Chronicity: unspecified Qualified Code(s): M86.9 - Osteomyelitis, unspecified Is this a current diagnosis for this admission?: YesPlan: Status post TMA amputation. Okay to discharge from general surgery perspective. Home health care and follow-up in wound care clinic, as ordered yesterday. (3) Diabetes mellitus with foot ulcer and gangrene Is this a current diagnosis for this admission?: Yes
== END 2016-06-19 20:30 | disposition home health service (06) | DRG 617 ==
LOC: ER 19:49 → UNDOADMIN 06-10 00:13 → EH 06-10 00:13 → 5 06-10 03:36 → EH 06-10 05:38 → 5 06-18 12:07
PROVIDERS: ADMIT Internal Medicine; ATTEND Internal Medicine
PROC: 02HV33Z Insertion of Infusion Device into Superior Vena Cava, Percutaneous Approach (ICD-10-PCS; 2016-06-12)
PROC: B548ZZA Ultrasonography of Superior Vena Cava, Guidance (ICD-10-PCS; 2016-06-12)
PROC: B518ZZA Fluoroscopy of Superior Vena Cava, Guidance (ICD-10-PCS; 2016-06-12)
PROC: 30233N1 Transfusion of Nonautologous Red Blood Cells into Peripheral Vein, Percutaneous Approach (ICD-10-PCS; 2016-06-13)
PROC: 0Y6V0Z0 Detachment at Right 4th Toe, Complete, Open Approach (ICD-10-PCS; 2016-06-17)
PROC: 0Y6T0Z0 Detachment at Right 3rd Toe, Complete, Open Approach (ICD-10-PCS; 2016-06-17)
PROC: 0HBMXZZ Excision of Right Foot Skin, External Approach (ICD-10-PCS; 2016-06-17)
PROC: 0Y6R0Z0 Detachment at Right 2nd Toe, Complete, Open Approach (ICD-10-PCS; principal; 2016-06-17 16:00)
DX: E11.69 Type 2 diabetes mellitus with other specified complication (principal); M86.171 Other acute osteomyelitis, right ankle and foot; E11.52 Type 2 diabetes mellitus with diabetic peripheral angiopathy with gangrene; Z21 Asymptomatic human immunodeficiency virus [HIV] infection status; I10 Essential (primary) hypertension; E78.5 Hyperlipidemia, unspecified; K21.9 Gastro-esophageal reflux disease without esophagitis; J45.909 Unspecified asthma, uncomplicated; E78.00 Pure hypercholesterolemia, unspecified; Z91.14 Patient's other noncompliance with medication regimen; Z79.899 Other long term (current) drug therapy; Z79.4 Long term (current) use of insulin; Z86.73 Personal history of transient ischemic attack (TIA), and cerebral infarction without residual deficits; Z89.419 Acquired absence of unspecified great toe; Z79.82 Long term (current) use of aspirin
CPT/HCPCS: 01480; 36415; 36430; 36569; 76937; 77001; 80048; 80053; 80076; 80202; 80307; 82550; 82553; 82962; 83036; 83735; 84100; 84443; 84484; 85025; 85652; 86140; 86360; 86850; 86900; 86901; 86920; 87040; 87070; 87077; 87086; 87186; 87205; 87536; 88305; 90686; 99284; C1769; J0330; J0690; J1642; J1650; J1815; J1885; J2060; J2250; J2405; J2543; J2704; J3010; J3370; J3490; J7030; J7060; P9016

== ENCOUNTER 2016-07-09 20:44 | Emergency (ER) | payer MEDICARE, MEDICAID ==
[2016-07-09] MEDS ORDERED: ACETAMINOPHEN 325 MG TABLET PO ONE (21:23)
--- NOTE | 2016-07-09 21:23 | ER Document Report ---
ED Medical Screen (RME) - General Stated Complaint: POST OP TOE PAIN Time seen by provider: 21:20 Mode of Arrival: Medic Information source: Patient Notes: 45-year-old male presents to ED for pain in his right foot. He had amputation of all of his toes last week. He states he did not receive any pain medicine when he went home. He stays at home with his son. Patient denies any drainage or fever. RME nurse wanted him to come to the emergency room due to a fever of 100.4 earlier today. I have greeted and performed a rapid initial assessment of this patient. A comprehensive ED assessment and evaluation of the patient, analysis of test results and completion of medical decision making process will be conducted by an additional ED providers. TRAVEL OUTSIDE OF THE [place] IN LAST 30 DAYS: No - Related Data Allergies/Adverse Reactions: No Known Allergies Allergy (Verified 03/25/16 12:31) Past Medical History - Past Medical History Cardiac Medical History: Reports: Hx Hypercholesterolemia, Hx Hypertension Pulmonary Medical History: Reports: Hx Asthma Endocrine Medical History: Reports: Hx Diabetes Mellitus Type 1, Hx Diabetes Mellitus Type 2 Renal/ Medical History: Denies: Hx Peritoneal Dialysis GI Medical History: Reports: Hx Gastroesophageal Reflux Disease Psychiatric Medical History: Denies: Hx Depression Infectious Medical History: Reports: Hx HIV Past Surgical History: Reports: Hx Orthopedic Surgery - large toe amputation - Immunizations Hx Diphtheria, Pertussis, Tetanus Vaccination: Yes
[2016-07-09] MEDS ORDERED: SULFAMETHOXAZOLE/TRIMETHOPRIM 800-160 MG TABLET PO ONE (22:25)
[2016-07-09] MEDS ORDERED: CEPHALEXIN 500 MG CAPSULE PO ONE (22:25)
[2016-07-09] MEDS ORDERED: DOXYCYCLINE HYCLATE 100 MG TABLET PO ONE (22:26)
[2016-07-09] MEDS ORDERED: INSULIN LISPRO 100 UNIT/ML 3 ML VIAL SUBCUT ONE (22:26)
[2016-07-09 22:30] LABS: ABSOLUTE EOSINOPHILS # (AUTO) 0.1 10^3/uL (0.0-0.6); ABSOLUTE LYMPHOCYTES (AUTO) 2.1 10^3/uL (0.5-4.7); ABSOLUTE MONOCYTES (AUTO) 1.1 10^3/uL (0.1-1.4); ABSOLUTE NEUT (AUTO) 4.2 10^3/uL (1.7-8.2); BASOPHILS % (AUTO) 0.3 % (0-2); EOSINOPHILS % (AUTO) 0.8 % (0-6); HEMATOCRIT 27.9 % (37.9-51.0); HEMOGLOBIN 8.7 g/dL (13.5-17.0); HGB HCT DIFFERENCE -1.8; LYMPHOCYTES % (AUTO) 28.6 % (13-45); MEAN CORPUSCULAR HEMOGLOBIN 21.1 pg (27.0-33.4); MEAN CORPUSCULAR HGB CONC 31.2 g/dL (32.0-36.0); MEAN CORPUSCULAR VOLUME 68 fl (80-97); MONOCYTES % (AUTO) 14.3 % (3-13); RED BLOOD COUNT 4.13 10^6/uL (4.35-5.55); RED CELL DISTRIBUTION WIDTH 18.5 % (11.5-14.0); WHITE BLOOD COUNT 7.5 10^3/uL (4.0-10.5)
[2016-07-09 22:47] LABS: ALANINE AMINOTRANSFERASE 19 U/L (21-72); ALBUMIN 3.4 g/dL (3.5-5.0); ALKALINE PHOSPHATASE 109 U/L (38-126); ANION GAP 12 (5-19); ASPARTATE AMINO TRANSFERASE 15 U/L (17-59); BILIRUBIN,TOTAL 0.9 mg/dL (0.2-1.3); BLOOD UREA NITROGEN 13 mg/dL (7-20); CALCIUM 8.8 mg/dL (8.4-10.2); CARBON DIOXIDE 27 mmol/L (22-30); CHLORIDE 95 mmol/L (98-107); CREATININE RESULT 1.53 mg/dL (0.52-1.25); GLUCOSE 353 mg/dL (75-110); POTASSIUM 3.8 mmol/L (3.6-5.0); SODIUM 133.6 mmol/L (137-145); TOTAL PROTEIN 8.3 g/dL (6.3-8.2)
--- NOTE | 2016-07-09 22:58 | ER Document Report ---
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 Patient himself denies any complaints, is a very poor historian, mostly refuses to answer my questions. States he does not want to be here and would like to go home immediately upon my assessment. He denies any significant pain to the foot but states that is not normally able to feel much. States the wound dressings have been performed by nursing and he has been following up as scheduled. TRAVEL OUTSIDE OF THE [place] IN LAST 30 DAYS: No - Related Data Allergies/Adverse Reactions: No Known Allergies Allergy (Verified 03/25/16 12:31) Past Medical History - General Information source: Patient - Social History Smoking Status: Never Smoker Chew tobacco use (# tins/day): No Frequency of alcohol use: None Drug Abuse: None Lives with: Family Family History: Reviewed & Not Pertinent Patient has suicidal ideation: No Patient has homicidal ideation: No - Past Medical History Cardiac Medical History: Reports: Hx Hypercholesterolemia, Hx Hypertension Pulmonary Medical History: Reports: Hx Asthma Endocrine Medical History: Reports: Hx Diabetes Mellitus Type 1, Hx Diabetes Mellitus Type 2 Renal/ Medical History: Denies: Hx Peritoneal Dialysis GI Medical History: Reports: Hx Gastroesophageal Reflux Disease Psychiatric Medical History: Denies: Hx Depression Infectious Medical History: Reports: Hx HIV Past Surgical History: Reports: Hx Orthopedic Surgery - large toe amputation - Immunizations Hx Diphtheria, Pertussis, Tetanus Vaccination: Yes Review of Systems - Review of Systems Notes: Constitutional: Positive for fever. HENT: Negative for sore throat. Eyes: Negative for visual changes. Cardiovascular: Negative for chest pain. Respiratory: Negative for shortness of breath. Gastrointestinal: Negative for abdominal pain, vomiting or diarrhea. Genitourinary: Negative for dysuria. Musculoskeletal: Negative for back pain. Skin: Positive for drainage from right lower extremities wound Neurological: Negative for headaches, weakness or numbness. 10 point ROS negative except as marked above and in HPI. Physical Exam - Vital signs Vitals: Temp Pulse Resp BP Pulse Ox 99.9 F 96 20 108/81 100 07/09/16 21:09 07/09/16 21:09 07/09/16 21:09 07/09/16 21:09 07/09/16 21:09 Interpretation: Normal Notes: PHYSICAL EXAMINATION: GENERAL: Appears much older than stated age. No acute distress. HEAD: Atraumatic, normocephalic. EYES: Pupils equal round and reactive to light, extraocular movements intact, sclera anicteric, conjunctiva are normal. ENT: nares patent, oropharynx clear without exudates. Moist mucous membranes. NECK: Normal range of motion, supple without lymphadenopathy LUNGS: Breath sounds clear to auscultation bilaterally and equal. No wheezes rales or rhonchi. HEART: Regular rate and rhythm without murmurs ABDOMEN: Soft, nontender, normoactive bowel sounds. No guarding, no rebound. No masses appreciated. EXTREMITIES: Limitation of all digits of the right foot with relatively well- healing wound. There is a small area of purulent drainage on the most lateral portion of the wound NEUROLOGICAL: No focal neurological deficits. Moves all extremities spontaneously and on command. PSYCH: Normal mood, normal affect. SKIN: Warm, Dry, normal turgor, no rashes or lesions noted. Course - Re-evaluation Re-evalutation: 07/09/16 22:56 Patient presents with a fever to 100.4 today and "not feeling well. Patient is an extremely difficult historian, was not answering my questions anything other than a head nod yes or no. States immediately that he wants to leave does not wish to stay in the department for further evaluation. He was agreeable to allow laboratories wound examination. His edges of the right toe have all been amputated and the site is overall well-appearing although there is a small area of purulent drainage from the lateral most aspect the amputation site. No leukocytosis. He is anemic at his baseline. His renal function is much improved from his prior studies. He has been started on Keflex and doxycycline. I've encouraged him to follow closely with his surgeon and primary care physician the next 1-2 days. His hyperglycemia was treated with subcutaneous insulin and is improved from time of initial evaluation.At this time will discharge with return precautions and follow-up recommendations. Verbal discharge instructions given a the bedside and opportunity for questions given. Medication warnings reviewed. Patient is in agreement with this plan and has verbalized understanding of return precautions and the need for primary care follow-up in the next 24-72 hours. - Vital Signs Vital signs: Temp Pulse Resp BP Pulse Ox 99.9 F 96 20 108/81 100 07/09/16 21:09 07/09/16 21:09 07/09/16 21:09 07/09/16 21:09 07/09/16 21:09 - Laboratory Result Diagrams: 07/09/16 22:15 07/09/16 22:15 Laboratory results interpreted by me: 07/09/16 07/09/16 07/09/16 22:15 22:15 23:39 RBC 4.13 L Hgb 8.7 L Hct 27.9 L MCV 68 L MCH 21.1 L MCHC 31.2 L RDW 18.5 H Monocytes % 14.3 H Sodium 133.6 L Chloride 95 L Creatinine 1.53 H Est GFR ( Amer) 59 L Est GFR (Non-Af Amer) 49 L Glucose 353 H POC Glucose 328 H AST 15 L ALT 19 L Total Protein 8.3 H Albumin 3.4 L Discharge - Discharge Clinical Impression: Hyperglycemia Postoperative complication Qualifiers: Surgical complication system/body Area: skin Surgical complication type: unspecified Procedure type: non-dermatologic Qualified Code(s): L76.82 - Other postprocedural complications of skin and subcutaneous tissue Fever Qualifiers: Fever type: unspecified Qualified Code(s): R50.9 - Fever, unspecified Condition: Good Disposition: HOME, SELF-CARE Additional Instructions: You have been started on 2 antibiotics to treat a possible infection from your amputation site. Please take as directed. You need to follow-up with your primary doctor as well as the surgeon who performed your amputation in the next 1-2 days. Please take all your medications as directed as her blood sugar was very high today. Return to emergency department immediately if you develop worsening pain to the area, recurrent fever, persistent vomiting, or any other symptoms that are concerning to you. Prescriptions: Cephalexin Monohydrate [Keflex 500 mg Capsule] 500 mg PO QID #28 capsule Doxycycline Hyclate 100 mg PO BID #14 tablet Referrals: VERONIKA ALMANZA MD [Primary Care Provider] - Follow up tomorrow
[2016-07-10 09:31] VITALS: BP 117/80
== END 2016-07-10 08:45 | disposition home or self-care (01) ==
LOC: ER 20:44
DX: G89.18 Other acute postprocedural pain (principal); M79.671 Pain in right foot; Z89.411 Acquired absence of right great toe; Z89.421 Acquired absence of other right toe(s); E11.65 Type 2 diabetes mellitus with hyperglycemia; R50.9 Fever, unspecified; D64.9 Anemia, unspecified; I10 Essential (primary) hypertension; J45.909 Unspecified asthma, uncomplicated; Z21 Asymptomatic human immunodeficiency virus [HIV] infection status
CPT/HCPCS: 99283; 36415; 82962; 85025; 80053; A9270 ×3; J1815

== ENCOUNTER 2016-07-16 16:49 | Emergency (ER) | payer MEDICARE, MEDICAID ==
[2016-07-16] MEDS ORDERED: DOXYCYCLINE HYCLATE 100 MG TABLET PO ONE (20:19)
[2016-07-16] MEDS ORDERED: CEPHALEXIN 500 MG CAPSULE PO ONE (20:19)
--- NOTE | 2016-07-16 20:22 | ER Document Report ---
ED General - General Chief Complaint: Foot Pain Stated Complaint: RIGHT FOOT PAIN Cannot obtain history due to: Uncooperative Notes: Patient is a 45-year-old male past medical history of diabetes, HIV, peripheral arterial disease and a recent complete imitation of all digits of the right lower extremity presents with increased bleeding from the wound. Denies any pain stating he can't really feel the foot at baseline. Nothing improves or worsens his wound bleeding although he admits that it started after he walking on it even after noting that was bleeding. He has been following in wound care clinic as directed per his report. States he never filled or started taking antibiotics were prescribed after he was last seen by me several days ago. He denies any constitutional symptoms or fever. TRAVEL OUTSIDE OF THE [place] IN LAST 30 DAYS: No - Related Data Allergies/Adverse Reactions: No Known Allergies Allergy (Verified 03/25/16 12:31) Past Medical History - General Information source: Patient - Social History Smoking Status: Current Every Day Smoker Frequency of alcohol use: None Drug Abuse: None Lives with: Family Family History: Reviewed & Not Pertinent - Past Medical History Cardiac Medical History: Reports: Hx Hypercholesterolemia, Hx Hypertension Pulmonary Medical History: Reports: Hx Asthma Endocrine Medical History: Reports: Hx Diabetes Mellitus Type 1, Hx Diabetes Mellitus Type 2 Renal/ Medical History: Denies: Hx Peritoneal Dialysis GI Medical History: Reports: Hx Gastroesophageal Reflux Disease Psychiatric Medical History: Denies: Hx Depression Infectious Medical History: Reports: Hx HIV Past Surgical History: Reports: Hx Orthopedic Surgery - large toe amputation - Immunizations Hx Diphtheria, Pertussis, Tetanus Vaccination: Yes Review of Systems - Review of Systems Notes: Constitutional: Negative for fever. HENT: Negative for sore throat. Eyes: Negative for visual changes. Cardiovascular: Negative for chest pain. Respiratory: Negative for shortness of breath. Gastrointestinal: Negative for abdominal pain, vomiting or diarrhea. Genitourinary: Negative for dysuria. Musculoskeletal: Negative for back pain. Skin: Positive for right foot wound Neurological: Negative for headaches, weakness or numbness. 10 point ROS negative except as marked above and in HPI. Physical Exam - Vital signs Vitals: Temp Pulse Resp BP Pulse Ox 98.5 F 95 18 136/79 H 100 07/16/16 16:58 07/16/16 16:58 07/16/16 16:58 07/16/16 16:58 07/16/16 16:58 Interpretation: Normal Notes: PHYSICAL EXAMINATION: GENERAL: Well-appearing, well-nourished and in no acute distress. HEAD: Atraumatic, normocephalic. EYES: Pupils equal round and reactive to light, extraocular movements intact, sclera anicteric, conjunctiva are normal. ENT: nares patent, oropharynx clear without exudates. Moist mucous membranes. NECK: Normal range of motion, supple without lymphadenopathy LUNGS: Breath sounds clear to auscultation bilaterally and equal. No wheezes rales or rhonchi. HEART: Regular rate and rhythm without murmurs ABDOMEN: Soft, nontender, normoactive bowel sounds. No guarding, no rebound. No masses appreciated. EXTREMITIES: There is a complete imitation of all digits of the right lower extremity. Wound base is well healing and is only a small portion of purulent drainage coming from the lateralmost aspect of the wound. No spreading redness of the skin. NEUROLOGICAL: No focal neurological deficits. Moves all extremities spontaneously and on command. PSYCH: Normal mood, normal affect. SKIN: Warm, Dry, normal turgor, no rashes or lesions noted. Course - Re-evaluation Re-evalutation: 07/16/16 20:19 Patient presents with increased bleeding from his foot wound after complete agitation of all digits of the right foot. Patient has not filled antibiotic that I prescribed last time he was here although the foot itself continues only have a small area of apparent infection in the most lateral portion of the wound. Otherwise it is well healing and appears better than the last saw him. His vitals are otherwise within normal limits and I do not suspect that he is acutely septic. The wound has been redressed, cleans and he will be again represcribed the antibiotics.At this time will discharge with return precautions and follow-up recommendations. Verbal discharge instructions given a the bedside and opportunity for questions given. Medication warnings reviewed. Patient is in agreement with this plan and has verbalized understanding of return precautions and the need for primary care follow-up in the next 24-72 hours. - Vital Signs Vital signs: Temp Pulse Resp BP Pulse Ox 98.7 F 94 16 135/86 H 98 07/16/16 21:02 07/16/16 21:02 07/16/16 21:02 07/16/16 21:02 02/21/17 21:02 Discharge - Discharge Clinical Impression: Foot ulcer, right Qualifiers: Non-pressure ulcer stage: unspecified non-pressure ulcer stage Qualified Code(s ): L97.519 - Non-pressure chronic ulcer of other part of right foot with unspecified severity Condition: Good Disposition: HOME, SELF-CARE Additional Instructions: You need to take the antibiotics that I am prescribing today. It is important that you actually get these filled and take them or you could get sicker. Keep the wound dressed as directed by your wound management doctor. Follow-up with your primary care doctor in the next 1-2 days continue to follow with your wound vice president risk management. Prescriptions: Cephalexin Monohydrate [Keflex 500 mg Capsule] 500 mg PO QID #28 capsule Doxycycline Hyclate 100 mg PO BID #14 capsule
[2016-07-16 21:56] VITALS: BP 135/86
== END 2016-07-16 21:05 | disposition home or self-care (01) ==
LOC: ER 16:49
DX: E11.621 Type 2 diabetes mellitus with foot ulcer (principal); L97.519 Non-pressure chronic ulcer of other part of right foot with unspecified severity; M79.671 Pain in right foot; E11.51 Type 2 diabetes mellitus with diabetic peripheral angiopathy without gangrene; F17.200 Nicotine dependence, unspecified, uncomplicated; I10 Essential (primary) hypertension; Z89.419 Acquired absence of unspecified great toe; Z21 Asymptomatic human immunodeficiency virus [HIV] infection status
CPT/HCPCS: 99283; A9270 ×2